=== PATIENT | female | born 1940 | race Caucasian/White ===

== ENCOUNTER 2018-07-26 23:15 | Inpatient (IN) | payer OTHER, BC ==
--- NOTE | 2018-07-27 00:09 | PDOC ---
History of Present Illness - General Chief Complaint: Chest Pain Stated Complaint: CHEST PAIN/FEVER Time Seen by Provider: 07/27/18 00:08 - History of Present Illness Initial Comments: 78 year old female with PMH of HTN (last echo 04/18 with EF 71%, mild right sided heart failure, and mild / AR), 40 pack year smoking history, and presenting with back pain wrapping aroudn to her left chest for the past 3 days since she slipped in her tub. The pain is non-exertional but worsens with upper body movement. Denies any nausea. vomiting, shortness of breath, diarrhea, or other symptoms. Of note, she has taken 7-8 ASA 324s today because of the pain and thought it would be prudent since she was aware of the benefit of aspirin in myocardial infarction. She was not, however, aware of the upper dosing limits and efficacy of ASA. Denies any nausea, vomiting, diarrhea, headache, or other symptoms. 07/27/18 00:16 Past History - Past Medical History Allergies/Adverse Reactions: Allergies Allergy/AdvReac Type Severity Reaction Status Date / Time No Known Allergies Allergy Verified 07/27/18 01:41 Home Medications: Ambulatory Orders Olmesartan Medoxomil [Benicar -] 40 mg PO DAILY 04/07/16 Aspirin [ASA -] 81 mg PO DAILY #30 tab.chew 04/09/16 COPD: No HTN: Yes - Surgical History Appendectomy: Yes Cholecystectomy: Yes - Suicide/Smoking/Psychosocial Hx Smoking History: Current every day smoker Have you smoked in the past 12 months: Yes Number of Cigarettes Smoked Daily: 20 Information on smoking cessation initiated: Yes 'Breaking Loose' booklet given: 04/08/16 Hx Alcohol Use: No Drug/Substance Use Hx: No Substance Use Type: None Hx Substance Use Treatment: No Review of Systems - Review of Systems Constitutional: No: Chills, Diaphoresis, Fever, Loss of Appetite HEENTM: No: Eye Pain, Blurred Vision, Tearing Respiratory: No: Cough, Orthopnea, Shortness of Breath Cardiac (ROS): Yes: Chest Pain. No: Irregular Heart Rate, Lightheadedness, Palpitations ABD/GI: No: Diarrhea, Nausea, Vomiting : No: Dysuria, Discharge, Frequency Musculoskeletal: No: See HPI, Back Pain, Joint Pain, Joint Swelling Integumentary: No: Flushing, Lesions, Lumps Neurological: No: Headache, Numbness, Paresthesia Psychiatric: No: Anxiety, Depression Hematologic/Lymphatic: No: Anemia, Blood Clots *Physical Exam - Vital Signs Last Vital Signs Temp Pulse Resp BP Pulse Ox 99.6 F 104 H 20 147/89 95 07/26/18 23:26 07/26/18 23:26 07/26/18 23:26 07/26/18 23:26 07/26/18 23:26 - Physical Exam General Appearance: Yes: Nourished, Appropriately Dressed. No: Apparent Distress HEENT: positive: EOMI, CHRISTOFER, Normal ENT Inspection, Normal Voice Neck: positive: Trachea midline, Normal Thyroid, Supple. negative: Tender, Rigid Respiratory/Chest: negative: Chest Tender, Lungs Clear, Normal Breath Sounds (r lower lobe crackles), Respiratory Distress, Accessory Muscle Use Cardiovascular: positive: Regular Rhythm, Regular Rate Gastrointestinal/Abdominal: positive: Normal Bowel Sounds, Flat, Soft. negative : Tender Lymphatic: negative: Adenopathy, Tenderness Musculoskeletal: positive: Normal Inspection. negative: Decreased Range of Motion Extremity: positive: Normal Capillary Refill, Normal Inspection, Normal Range of Motion. negative: Tender Integumentary: positive: Normal Color, Dry, Warm Neurologic: positive: Fully Oriented, Alert, Normal Mood/Affect, Normal Response ( ), Motor Strength 5/5 ED Treatment Course - LABORATORY CBC & Chemistry Diagram: 07/27/18 01:50 07/27/18 01:50 Medical Decision Making - Medical Decision Making 78 year old female with recent fall and left sided rib pain presenting with worsening cough and chest pain with fever. Suspicion is that her respiratory effort was compromised by her recent injury and she acquired a pneumonia because of it. CXR / CTA corroborating a right multifocal PNA. Patient also hyponatremic to 129. PSI/ PORT score 98. Patient treated with ceftriaxone, azithro, and normal saline. Will admit patient for further IV antibiotics because of potential for decline. 07/27/18 05:48 *DC/Admit/Observation/Transfer Diagnosis at time of Disposition: Hyponatremia PNA (pneumonia) Qualifiers: Pneumonia type: due to unspecified organism Laterality: right Lung location: lower lobe of lung Qualified Code(s): J18.1 - Lobar pneumonia, unspecified organism - Discharge Dispostion Condition at time of disposition: Stable Decision to Admit order: Yes - Referrals Referrals: Michelle Araujo MD [Primary Care Provider] - - Patient Instructions - Post Discharge Activity
--- NOTE | 2018-07-27 00:17 | PDOC ---
Attending Attestation - Resident Resident Name: Sylvester aSnto - ED Attending Attestation I have performed the following: I have examined & evaluated the patient, The case was reviewed & discussed with the resident, I agree w/resident's findings & plan - HPI HPI: 07/27/18 05:07 78-year-old female status post fall 5 days ago now with increasing cough, left back pain and fever. - Physicial Exam PE: 07/27/18 05:08 GENERAL: Awake, in no acute distress HEAD: No signs of trauma EYES: ENT:clear without exudates. Moist mucosa NECK: Normal ROM, LUNGS:. Normal work of breathing. HEART: Regular rate and rhythm, ABDOMEN: Soft, nondistended CHEST WALL: BACK: No midline tenderness. EXTREMITIES:. No erythema, or tenderness NEUROLOGICAL: Alert, SKIN: Warm, Dry - Medical Decision Making 07/27/18 05:12 78-year-old female with cough and fever status post fall 5 days ago CTA of the chest ordered due to abnormal findings in the right lower lung corrales on x-ray as well as pleuritic chest pain and recent trauma to rule out pulmonary embolism as well as postobstructive pneumonia/atelectasis/pulmonary contusion Antibiotics, cough suppression Disposition pending CT scan results
[2018-07-27 01:58] LABS: BASO % 0.4 % (0-2.0); EOS % 0.5 % (0-4.5); HEMOGLOBIN 12.7 GM/dL (10.7-15.3); LYMPH % 7.9 % (8-40); MCH 32.1 pg (25.7-33.7); MCHC 33.4 g/dl (32.0-36.0); MEAN PLT VOLUME 6.7 fl (7.5-11.1); MONO % 10.2 % (3.8-10.2); PLATELET COUNT 320 K/MM3 (134-434); RBC 3.96 M/mm3 (3.60-5.2)
[2018-07-27 02:29] LABS: ALK PHOS 118 U/L (45-117); ANION GAP 6 MMOL/L (8-16); BILIRUBIN,TOTAL 0.6 mg/dL (0.2-1); BLOOD UREA NITROGEN 7 mg/dL (7-18); CALCIUM 8.5 mg/dL (8.5-10.1); CHLORIDE 98 mmol/L (98-107); CO2 26 mmol/L (21-32); CREATININE 0.6 mg/dL (0.55-1.3); GLUCOSE,RANDOM 96 mg/dL (74-106); N-TERMINAL BNP 419.8 pg/ml (5-450); POTASSIUM 4.4 mmol/L (3.5-5.1); SGOT/AST 31 U/L (15-37); SGPT/ALT 23 U/L (13-61); SODIUM 129 mmol/L (136-145); TOT PROT 6.8 g/dl (6.4-8.2)
[2018-07-27] MEDS ORDERED: SODIUM CHLORIDE 0.9% 500 ML INFUS.BAG IV ONE (03:33)
[2018-07-27] MEDS ORDERED: ACETAMINOPHEN 1000 MG/100 ML VIAL (NON FORMULARY) IVPB ONE (04:14)
[2018-07-27] MEDS ORDERED: guaiFENesin 200 MG/10 ML 10 ML UNIT-DOSE CUPS PO ONE (04:14)
[2018-07-27] MEDS ORDERED: guaiFENesin/CODEINE 5 ML UNIT-DOSE CUPS PO ONE (04:22)
[2018-07-27] MEDS ORDERED: ACETAMINOPHEN INJECTION 100 ML IVPB ONE (04:22)
[2018-07-27] MEDS ORDERED: AZITHROMYCIN 250 MG TABLET PO ONE (05:17)
[2018-07-27] MEDS ORDERED: AZITHROMYCIN 250 MG TABLET ONE (05:58)
[2018-07-27] MEDS ORDERED: CEFTRIAXONE 1 GM/50 ML BAG ONE (05:58)
--- NOTE | 2018-07-27 06:12 | HP ---
Admitting History and Physical - Primary Care Physician PCP: Michelle Araujo - Admission Chief Complaint: Chest Pain, Back Pain, Cough History of Present Illness: This is a 78 y/o woman with a PMhx of HTN, Echo- EF 71%, mild R-hF, mild /AR. Who presents to the ED with chest pain, back pain, cough, fever x 1-2 days. Patient reports having a fever 102.0 at home. Patient describes the CP as "an Ache" She reports falling last Thursday out of the bathtub, hitting her head, denies LOC. Patient reports missing her step while getting out of the tub. She reports having headaches and dizziness intermittently. Patient denies SOB, palpitations, AP, N/V/D, dysuria. Patient denies recent sick contacts History Source: Patient Limitations to Obtaining History: No Limitations - Past Medical History Cardiovascular: Yes: Aortic Stenosis, CHF, HTN Pulmonary: Yes: COPD - Past Surgical History Past Surgical History: Yes: Cholecystectomy - Smoking History Smoking history: Current every day smoker Have you smoked in the past 12 months: Yes Aproximately how many cigarettes per day: 20 - Alcohol/Substance Use Hx Alcohol Use: No History of Substance Use: reports: None - Social History Usual Living Arrangement: Yes: With Spouse ADL: Independent History of Recent Travel: No Home Medications - Allergies Allergies/Adverse Reactions: Allergies Allergy/AdvReac Type Severity Reaction Status Date / Time No Known Allergies Allergy Verified 07/27/18 01:41 - Home Medications Home Medications: Ambulatory Orders Olmesartan Medoxomil [Benicar -] 40 mg PO DAILY 04/07/16 Aspirin [ASA -] 81 mg PO DAILY #30 tab.chew 04/09/16 Family Disease History - Family Disease History Family History: Unable to Obtain Review of Systems - Review of Systems Constitutional: reports: Fever Eyes: reports: No Symptoms HENT: reports: No Symptoms Neck: reports: No Symptoms Cardiovascular: reports: Chest Pain Respiratory: reports: Cough Gastrointestinal: reports: No Symptoms Genitourinary: reports: No Symptoms Breasts: reports: No Symptoms Reported Musculoskeletal: reports: Extremity Pain, Joint Pain Integumentary: reports: No Symptoms Neurological: reports: Dizziness, Headache Endocrine: reports: No Symptoms Hematology/Lymphatic: reports: No Symptoms Psychiatric: reports: No Symptoms Pain Intensity: 4 Physical Examination Vital Signs: Vital Signs Temperature 98.1 F 05/28/19 05:26 Pulse Rate 96 H 07/27/18 05:26 Respiratory Rate 17 07/27/18 05:26 Blood Pressure 135/74 07/27/18 05:26 O2 Sat by Pulse Oximetry (%) 99 07/27/18 05:26 Constitutional: Yes: No Distress, Calm, Thin Eyes: Yes: WNL, Conjunctiva Clear, PERRL HENT: Yes: WNL, Atraumatic, Normocephalic Neck: Yes: WNL, Supple, Trachea Midline Cardiovascular: Yes: Regular Rate and Rhythm, S1, S2 Respiratory: Yes: Diminished (RLL), On Nasal O2, Rhonchi Gastrointestinal: Yes: WNL, Normal Bowel Sounds, Soft Renal/: Yes: WNL Musculoskeletal: Yes: Other (left shoulder) Extremities: Yes: WNL Edema: No Peripheral Pulses WNL: Yes Neurological: Yes: WNL, Alert, Oriented, Cran Nerves II-XII Intact ...Motor Strength: WNL Psychiatric: Yes: WNL, Alert, Oriented Labs: CBC, BMP 07/27/18 01:50 07/27/18 01:50 Laboratory Results - last 24 hr 07/27/18 07/27/18 07/27/18 01:50 01:50 01:50 WBC 16.0 H RBC 3.96 Hgb 12.7 Hct 38.0 MCV 96.0 MCH 32.1 MCHC 33.4 RDW 14.0 Plt Count 320 MPV 6.7 L Absolute Neuts (auto) 13.0 H Neutrophils % 81.0 Lymphocytes % 7.9 L D Monocytes % 10.2 Eosinophils % 0.5 D Basophils % 0.4 Nucleated RBC % 0 Sodium 129 L Potassium 4.4 Chloride 98 Carbon Dioxide 26 Anion Gap 6 L BUN 7 Creatinine 0.6 Est GFR (CKD-EPI)AfAm 101.18 Est GFR (CKD-EPI)NonAf 87.30 Random Glucose 96 Lactic Acid Calcium 8.5 Magnesium Total Bilirubin 0.6 AST 31 ALT 23 Alkaline Phosphatase 118 H Creatine Kinase 370 H Creatine Kinase Index 0.2 CK-MB (CK-2) < 1.0 Troponin I < 0.02 B-Natriuretic Peptide 419.8 Total Protein 6.8 Albumin 3.0 L Salicylates 8.2 07/27/18 07/27/18 07/27/18 06:40 06:40 06:40 WBC RBC Hgb Hct MCV MCH MCHC RDW Plt Count MPV Absolute Neuts (auto) Neutrophils % Lymphocytes % Monocytes % Eosinophils % Basophils % Nucleated RBC % Sodium 132 L Potassium 3.8 Chloride 102 Carbon Dioxide 22 Anion Gap 8 BUN 5 L Creatinine 0.5 L Est GFR (CKD-EPI)AfAm 107.44 Est GFR (CKD-EPI)NonAf 92.70 Random Glucose 110 H Lactic Acid 0.8 Calcium 7.8 L Magnesium 2.1 Total Bilirubin AST ALT Alkaline Phosphatase Creatine Kinase Creatine Kinase Index CK-MB (CK-2) Troponin I < 0.02 B-Natriuretic Peptide Total Protein Albumin Salicylates Intake & Output 07/24/18 07/25/18 07/26/18 07/27/18 23:59 23:59 23:59 23:59 Weight 49.895 kg Current Medications Generic Name Dose Route Start Last Admin Trade Name Freq PRN Reason Stop Dose Admin Acetaminophen 650 mg 07/27/18 10:00 Tylenol - PO Q6H PRN FEVER Aspirin 81 mg 07/27/18 10:00 Asa - PO DAILY [facility] Azithromycin 500 mg in 250 mls @ 250 mls/hr 07/28/18 10:00 Zithromax 500mg Ivpb (Pre-Docked) IVPB DAILY [facility] Ceftriaxone Sodium 1 gm/ 50 mls @ 100 mls/hr 07/28/18 10:00 Dextrose IVPB DAILY [facility] Protocol Valsartan 320 mg 07/27/18 10:00 Diovan - PO DAILY [facility] Imaging - Results Chest X-ray: Image Reviewed Cat Scan: Pending (Head), Image Reviewed (chest- multifocal RLL pneumonia) EKG: Image Reviewed Problem List - Problems (1) Chest pain Assessment/Plan: r/o ACS HEART Score 4 Chest Xray- RLL Pneumonia EKG- NSR with TWI Cardiac monitoring Serial Enzymes Appreciate Cardiology consult Continue Asa Code(s): R07.9 - CHEST PAIN, UNSPECIFIED (2) PNA (pneumonia) Assessment/Plan: Will treat for CAP CURB65 1 qSOFA 0 Chest Xray- RLL CTA- Multifocal Pneumonia RLL WBC 16, neutrophils 81.1 T Max 100.2 Ceftriaxone, Azithromycin given in ED, will continue Blood Cultures-pending Urine Culture-pending Lactic Acid ordered Appreciate ID consult Monitor CBC, BMP O2 Tylenol Code(s): J18.9 - PNEUMONIA, UNSPECIFIED ORGANISM Qualifiers: Pneumonia type: due to unspecified organism Laterality: right Lung location: lower lobe of lung Qualified Code(s): J18.1 - Lobar pneumonia, unspecified organism (3) Sepsis Assessment/Plan: Sepsis Criteria met secondary to Pneumonia T Max 102 WBC 16 Neutrophils 81 Chest Xray- RLL Blood Cultures-pending Urine Cultures-pending Lactic Acid- pending Continue ABX Appreciate ID consult Maintain MAP > 65 Monitor vitals Repeat CBC, BMP Code(s): A41.9 - SEPSIS, UNSPECIFIED ORGANISM (4) Hyponatremia Assessment/Plan: Likely secondary to Dehydration vs SIADH NS bolus given in ED Na Deficit 295 Goal correction 6-8meq/24hr Monitor BMP closely Serum Osmo, Urine Osmo, Na Spot-pending Consider Nephrology consult if condition worsens Monitor vitals Seizure Precautions Code(s): E87.1 - HYPO-OSMOLALITY AND HYPONATREMIA (5) Fall at home Assessment/Plan: x 1 week out of bathtub, +head trauma, denies LOC Will order Head CT r/o concussion Neuro checks Monitor vitals Fall Precautions Code(s): W19.XXXA - UNSPECIFIED FALL, INITIAL ENCOUNTER; Y92.009 - UNSP PLACE IN UNSP NON-INSTITUT (PRIVATE) RESIDENCE PLACE (6) HTN (hypertension) Assessment/Plan: stable Monitor BP Continue home med Monitor renal function Code(s): I10 - ESSENTIAL (PRIMARY) HYPERTENSION Assessment/Plan This is a 78 y/o woman with a PMHx of HTN, Echo EF 71%, Mild Right HF, Mild / AR. Placed in Observation for Chest Pain r/o ACS, Sepsis secondary to Community Acquired Pneumonia, Hyponatremia for further evaluation of their emergent condition. Plan: See Problem List FEN Replete lytes prn Low Na Diet DVT ppx OOB SCDs Heparin SQ Dispo: Observation Visit type - Emergency Visit Emergency Visit: Yes ED Registration Date: 07/27/18 Care time: The patient presented to the Emergency Department on the above date and was hospitalized for further evaluation of their emergent condition. - New Patient This patient is new to me today: Yes Date on this admission: 07/27/18 - Critical Care Critical Care patient: No
[2018-07-27 07:17] LABS: CALCIUM 7.8 mg/dL (8.5-10.1); CREATININE 0.5 mg/dL (0.55-1.3); MAGNESIUM 2.1 mg/dL (1.8-2.4); POTASSIUM 3.8 mmol/L (3.5-5.1)
--- NOTE | 2018-07-27 10:40 | PN ---
Progress Note, Physician Chief Complaint: Pneumonia Chest pain - Current Medication List Current Medications: Active Medications Acetaminophen (Tylenol -) 650 mg PO Q6H PRN PRN Reason: FEVER Aspirin (Asa -) 81 mg PO DAILY [facility] Azithromycin (Zithromax 500mg Ivpb (Pre-Docked)) 500 mg in 250 mls @ 250 mls/ hr IVPB DAILY [facility] Ceftriaxone Sodium 1 gm/ (Dextrose) 50 mls @ 100 mls/hr IVPB DAILY [facility]; Protocol Nicotine (Nicoderm Patch -) 14 mg TD DAILY AV Valsartan (Diovan -) 320 mg PO DAILY AV - Objective Vital Signs: Vital Signs Temperature 98.7 F 07/27/18 07:33 Pulse Rate 97 H 07/27/18 09:30 Respiratory Rate 20 07/27/18 09:30 Blood Pressure 130/80 07/27/18 09:30 O2 Sat by Pulse Oximetry (%) 97 07/27/18 09:30 Constitutional: Yes: Well Nourished, No Distress, Calm Cardiovascular: Yes: Regular Rate and Rhythm Respiratory: Yes: Regular Gastrointestinal: Yes: Normal Bowel Sounds, Soft Musculoskeletal: Yes: Muscle Weakness Extremities: Yes: WNL Edema: No Neurological: Yes: Alert, Oriented Psychiatric: Yes: Alert, Oriented Labs: CBC, BMP 07/27/18 01:50 07/27/18 06:40 Problem List - Problems (1) Chest pain Assessment/Plan: -Cardiology consult -Trops x 3 negative -EKG no changes -CT chest reviewed, cannot exclude PE -V/Q scan ordered -Pulmonary consult Code(s): R07.9 - CHEST PAIN, UNSPECIFIED (2) PNA (pneumonia) Assessment/Plan: -CT chest reviewed, cannot exclude PE -RLL consolidation -IV abx -Pulmonary consult -Bronchodilators -Nasal O2 PRN -Febrile upon admission. afebrile now -+leukocytosis, monitor trend Code(s): J18.9 - PNEUMONIA, UNSPECIFIED ORGANISM Qualifiers: Pneumonia type: due to unspecified organism Laterality: right Lung location: lower lobe of lung Qualified Code(s): J18.1 - Lobar pneumonia, unspecified organism (3) Pulmonary embolism Assessment/Plan: -Questionable PE on CTA -maintaining Spo2 >90, no SOB -STAT V/Q scan ordered -pulmonary consult -Stat dose of Lovenox 50 mg Code(s): I26.99 - OTHER PULMONARY EMBOLISM WITHOUT ACUTE COR PULMONALE (4) Hyponatremia Assessment/Plan: -seems chronic -Nephrology consult -monitor trend Code(s): E87.1 - HYPO-OSMOLALITY AND HYPONATREMIA Assessment/Plan see problem list Physical therapy
[2018-07-27] MEDS ORDERED: APIXABAN 5 MG TABLET PO SCH (10:45)
[2018-07-27 10:51] VITALS: BMI 20.7
[2018-07-27] MEDS ORDERED: BENZOCAINE/MENTH/CETYLPYRD CL 1 EACH LOZENGE MM PRN (10:52)
--- NOTE | 2018-07-27 11:31 | EKG ---
Test Reason : Blood Pressure : / mmHG Vent. Rate : 099 BPM Atrial Rate : 099 BPM P-R Int : 136 ms QRS Dur : 082 ms QT Int : 336 ms P-R-T Axes : 062 076 051 degrees QTc Int : 431 ms SINUS RHYTHM WITH MARKED SINUS ARRHYTHMIA SEPTAL INFARCT , AGE UNDETERMINED ABNORMAL ECG WHEN COMPARED WITH ECG OF 08-APR-2016 14:05, PREMATURE ATRIAL COMPLEXES ARE NO LONGER PRESENT SEPTAL INFARCT IS NOW PRESENT Confirmed by Ryan Gill MD ([id number]) on 07/27/2018 11:31:02 AM Referred By: Confirmed By:Ryan Gill MD
[2018-07-27] MEDS: VALSARTAN 160 MG TABLET (UD) PO SCH ×2 (12:03→13:54)
[2018-07-27] MEDS: ASPIRIN 81 MG CHEWABLE TABLETS PO SCH (12:03)
[2018-07-27] MEDS: guaiFENesin/D-METHORPHAN HB 10 ML UNIT-DOSE CUPS PO PRN ×3 (12:03→20:16)
[2018-07-27] MEDS: NICOTINE 14 MG/24 HOURS TOPICAL PATCH TD SCH (12:08)
[2018-07-27] MEDS: ENOXAPARIN NA (PORCINE) 60 MG/0.6 ML DISP.SYRIN SQ SCH ×2 (12:09→22:07)
--- NOTE | 2018-07-27 12:09 | CONSULT ---
Consult - text type - Consultation Consultation Note: Renal consult for hyponatremia This is a 78 year old woman with hx of Hypertension, right sided heart failure who presented with cough/fever and chest pain and found to have RLL PNA and possible PE with Na of 132. Pt is awake and alert, continues to have cough. Pt was told in the past that her Na was low but no treatment was warranted. Denies any confusion, lethargy, weakness, N/V. Drinks about 10 glasses of water daily. No diuretic use. No leg swelling. Making urine w/o difficulty. PMHx: as above Allergies: NKDA Family Hx: NC Social Hx: No T/A/D ROS: as per HPI, all other pertinent ros negative Home Medications Medication Instructions Recorded Olmesartan Medoxomil [Benicar -] 40 mg PO DAILY 04/07/16 Aspirin [ASA -] 81 mg PO DAILY #30 tab.chew 04/09/16 Vital Signs Temperature 99.1 F 07/27/18 10:45 Pulse Rate 92 H 07/27/18 10:45 Respiratory Rate 18 07/27/18 10:45 Blood Pressure 134/76 07/27/18 10:45 O2 Sat by Pulse Oximetry (%) 97 07/27/18 09:30 Intake & Output 07/24/18 07/25/18 07/26/18 07/27/18 23:59 23:59 23:59 23:59 Weight 49.895 kg 49.85 kg NAD awake and alert on NC O2 neck supple, no JVD RRR, no M/R mild rales lung base soft NT/ND no Le edema, clubbing or cyanosis no focal neurologic deficits CBC, BMP 07/27/18 01:50 07/27/18 06:40 Current Medications Acetaminophen (Tylenol -) 650 mg PO Q6H PRN PRN Reason: FEVER Albuterol/Ipratropium (Duoneb -) 1 amp NEB Q6H PRN PRN Reason: SHORTNESS OF BREATH Aspirin (Asa -) 81 mg PO DAILY AV Benzocaine/Menthol (Cepacol Lozenge -) 1 each MM PRN PRN PRN Reason: SORE THROAT Enoxaparin Sodium (Lovenox -) 50 mg SQ Q12H AV Guaifenesin (Robitussin Dm -) 10 ml PO Q4H PRN PRN Reason: COUGH Azithromycin (Zithromax 500mg Ivpb (Pre-Docked)) 500 mg in 250 mls @ 250 mls/ hr IVPB DAILY [facility] Ceftriaxone Sodium 1 gm/ (Dextrose) 50 mls @ 100 mls/hr IVPB DAILY [facility]; Protocol Nicotine (Nicoderm Patch -) 14 mg TD DAILY [facility] Valsartan (Diovan -) 320 mg PO DAILY AV 78 year old woman with hx of Hypertension, right sided heart failure who presented with cough/fever and chest pain and found to have RLL PNA and possible PE with Na of 132. #Chest pain #PNA #Possible PE #Hyponatremiea (evolemic) #hypertension Serum Na likely low due to ADH release in setting of lung pathology Check urine studies, TSH, AM Cortisol, Uric aicd Would maintain on 1L fluid restriction for now (discussed with the patient) continue antibiotics as per primary on Lovenox for suspected PE Pulmonary consult Thank you Will follow Erick Montano DO
--- NOTE | 2018-07-27 12:48 | PN ---
Progress Note (short form) - Note Progress Note: ID CONSULT DICTATED COMMUNITY ACQ VS. ATYPICAL RLL PNEUMONIA R/O SEPSIS SECONDARY TO PNEUMONIA AWAIT C/S EMPIRIC CEFTRIAXONE/ ZITHROMAX
--- NOTE | 2018-07-27 13:02 | CON.PULM ---
Consult Consult Specialty:: PULM/CCM Referred by:: MOJGAN Reason for Consultation:: SOB - History of Present Illness Chief Complaint: SOB History of Present Illness: 78 F, 1 PPD smoker and HTN. Recent slip and fall in her bathtub on her back. Having musculoskeletal pain mostly in the back. Admitted via the ER due to chest pain, back pain, cough, fever for about 1-2 days. She reports having a fever of 102.0 at home. No hemoptysis. No travel history or sick contacts. No personal or family history of VTE. No recent prolonged periods of immobilzation. CTA: filling defect in the RLL. Infiltrates / consolidation in the RLL. - History Source History Provided By: Patient Limitations to Obtaining History: No Limitations - Past Medical History Cardio/Vascular: Yes: Aortic Stenosis, CHF, HTN Pulmonary: Yes: Bronchitis, COPD, Pneumonia. No: O2 Dependent, Previously Intubated, Pulmonary Embolus, Pulmonary Fibrosis, Sleep Apnea ...: No - Past Surgical History Past Surgical History: Yes: Cholecystectomy - Alcohol/Substance Use Hx Alcohol Use: Yes (socially) History of Substance Use: reports: None - Smoking History Smoking history: Current every day smoker Have you smoked in the past 12 months: Yes Aproximately how many cigarettes per day: 20 - Social History ADL: Independent History of Recent Travel: No Home Medications - Allergies Allergies/Adverse Reactions: Allergies Allergy/AdvReac Type Severity Reaction Status Date / Time No Known Allergies Allergy Verified 07/27/18 01:41 - Home Medications Home Medications: Ambulatory Orders Olmesartan Medoxomil [Benicar -] 40 mg PO DAILY 04/07/16 Aspirin [ASA -] 81 mg PO DAILY #30 tab.chew 04/09/16 Review of Systems - Review of Systems Constitutional: reports: Chills, Fever. denies: Unintentional Wgt. Loss Eyes: reports: No Symptoms HENT: reports: No Symptoms Neck: reports: No Symptoms Cardiovascular: reports: Chest Pain, Shortness of Breath. denies: Edema, Palpitations Respiratory: reports: Cough, SOB, SOB on Exertion. denies: Hemoptysis, Snoring , Wheezing Gastrointestinal: reports: No Symptoms Genitourinary: reports: No Symptoms Breasts: reports: No Symptoms Reported Musculoskeletal: reports: Back Pain, Muscle Pain Integumentary: reports: No Symptoms Neurological: reports: No Symptoms Endocrine: reports: No Symptoms Hematology/Lymphatic: reports: No Symptoms Psychiatric: reports: No Symptoms Physical Exam Vital Sings: Vital Signs Temperature 99.1 F 07/27/18 10:45 Pulse Rate 92 H 07/27/18 10:45 Respiratory Rate 18 07/27/18 10:45 Blood Pressure 134/76 07/27/18 10:45 O2 Sat by Pulse Oximetry (%) 97 07/27/18 09:30 Constitutional: Yes: No Distress, Thin Eyes: Yes: Conjunctiva Clear, EOM Intact HENT: Yes: Atraumatic, Normocephalic Neck: Yes: Supple, Trachea Midline Cardiovascular: Yes: Regular Rate and Rhythm Respiratory: Yes: Cough, Diminished, Rhonchi, SOB, SOB on Exertion, Tachypnea. No: Accessory Muscle Use, Rales, Stridor, Wheezes ...Inspection: Yes: WNL ...Clubbing: No Gastrointestinal: Yes: Normal Bowel Sounds, Soft Renal/: Yes: WNL Musculoskeletal: Yes: WNL Extremities: Yes: WNL Edema: No Peripheral Pulses WNL: Yes Integumentary: Yes: WNL Neurological: Yes: WNL, Alert, Oriented ...Motor Strength: WNL Psychiatric: Yes: WNL, Alert, Oriented Labs: CBC, BMP 07/27/18 01:50 07/27/18 06:40 Imaging - Results Chest X-ray: Report Reviewed, Image Reviewed Cat Scan: Report Reviewed, Image Reviewed Problem List - Problems (1) COPD (chronic obstructive pulmonary disease) Code(s): J44.9 - CHRONIC OBSTRUCTIVE PULMONARY DISEASE, UNSPECIFIED (2) Smoker Code(s): F17.200 - NICOTINE DEPENDENCE, UNSPECIFIED, UNCOMPLICATED (3) Chest pain Code(s): R07.9 - CHEST PAIN, UNSPECIFIED (4) Fall at home Code(s): W19.XXXA - UNSPECIFIED FALL, INITIAL ENCOUNTER; Y92.009 - UNSP PLACE IN UNSP NON-INSTITUT (PRIVATE) RESIDENCE PLACE (5) HTN (hypertension) Code(s): I10 - ESSENTIAL (PRIMARY) HYPERTENSION (6) Hyponatremia Code(s): E87.1 - HYPO-OSMOLALITY AND HYPONATREMIA (7) PNA (pneumonia) Code(s): J18.9 - PNEUMONIA, UNSPECIFIED ORGANISM Qualifiers: Pneumonia type: due to unspecified organism Laterality: right Lung location: lower lobe of lung Qualified Code(s): J18.1 - Lobar pneumonia, unspecified organism (8) Pulmonary embolism Code(s): I26.99 - OTHER PULMONARY EMBOLISM WITHOUT ACUTE COR PULMONALE (9) Fall Code(s): W19.XXXA - UNSPECIFIED FALL, INITIAL ENCOUNTER Qualifiers: Encounter type: initial encounter Qualified Code(s): W19.XXXA - Unspecified fall, initial encounter Assessment/Plan ABX per ID No smoking counseled BD TX PRN Monitor off systemic steroids Juan AC with Lovenox for now and then DOAC. CT chest does appear to demonstrate a RLL filling defect. Will review further with radiology. Check LE doppler Check sputum Will need outpatient PFTs Will follow. Thank you. Dr Rosas
[2018-07-27 13:06] LABS: OSMOLALITY,SERUM 273 mosm/kg (278-305)
[2018-07-27 13:12] LABS: URIC ACID 2.3 mg/dL (2.6-7.2)
--- NOTE | 2018-07-27 14:11 | CON.CARD ---
Consult Consult Specialty:: Cardiology Referred by:: Michelle Araujo MD Reason for Consultation:: Cardiac evaluation - History of Present Illness Chief Complaint: Cough and fever History of Present Illness: Patient is a 78 year old female well known to our service with underlying history of HTN/HCVD, borderline hypercholesterolemia who presents with chest pain, back pain, cough (dry) and fever or 102. SHe complains of fall last week in the bathtub hitting her head but no LOC. She denies palpitations at this time. She denies paroxysmal nocturnal dyspnea or orthopnea. She denies nausea, vomiting, diarrhea or abdominal pain. She denies headache or lightheadedness. No sick contacts. - History Source History Provided By: Patient, Medical Record Limitations to Obtaining History: No Limitations - Past Medical History Cardio/Vascular: Yes: Aortic Stenosis, CHF, HTN Pulmonary: Yes: Bronchitis, COPD, Pneumonia - Past Surgical History Past Surgical History: Yes: Cholecystectomy - Alcohol/Substance Use Hx Alcohol Use: Yes (socially) History of Substance Use: reports: None - Smoking History Smoking history: Current every day smoker Have you smoked in the past 12 months: Yes Aproximately how many cigarettes per day: 20 - Social History ADL: Independent History of Recent Travel: No Home Medications - Allergies Allergies/Adverse Reactions: Allergies Allergy/AdvReac Type Severity Reaction Status Date / Time No Known Allergies Allergy Verified 07/27/18 01:41 - Home Medications Home Medications: Ambulatory Orders Olmesartan Medoxomil [Benicar -] 40 mg PO DAILY 04/07/16 Aspirin [ASA -] 81 mg PO DAILY #30 tab.chew 04/09/16 Review of Systems - Review of Systems Constitutional: reports: Fever. denies: Chills Cardiovascular: reports: Chest Pain, Shortness of Breath. denies: Palpitations Respiratory: reports: Cough, SOB. denies: Hemoptysis, Orthopnea, PND Gastrointestinal: denies: Abdominal Pain, Constipation, Diarrhea, Melena, Nausea , Rectal Bleeding, Vomiting Genitourinary: denies: Dysuria, Hematuria Musculoskeletal: reports: Back Pain. denies: Joint Pain Neurological: denies: Dizziness, Headache, Seizure, Syncope Vital Signs: Vital Signs Temperature 99.1 F 07/27/18 10:45 Pulse Rate 92 H 07/27/18 10:45 Respiratory Rate 18 07/27/18 10:45 Blood Pressure 134/76 07/27/18 10:45 O2 Sat by Pulse Oximetry (%) 97 07/27/18 09:30 Eyes: Yes: PERRL HENT: Yes: Atraumatic Neck: Yes: Supple Respiratory: Yes: Diminished Gastrointestinal: Yes: Normal Bowel Sounds, Soft. No: Tenderness Cardiovascular: Yes: Regular Rate and Rhythm JVD: No PMI: Non-Displaced Heart Sounds: Yes: S1, S2. No: Gallop Edema: No - Other Data Labs, Other Data: CBC, BMP 07/27/18 01:50 07/27/18 06:40 Troponin, BNP 07/27/18 07/27/18 07/27/18 01:50 06:40 07:40 Troponin I < 0.02 < 0.02 < 0.02 B-Natriuretic Peptide 419.8 Sinus rhythm with sinus arrhythmia Imaging - Results Chest X-ray: Report Reviewed (Atelectasis and new infiltrate right base) Cat Scan: Report Reviewed (Chest CT acute pneumonia) EKG: Report Reviewed Problem List - Problems (1) Aortic valve regurgitation, nonrheumatic Code(s): I35.1 - NONRHEUMATIC AORTIC (VALVE) INSUFFICIENCY (2) COPD (chronic obstructive pulmonary disease) Code(s): J44.9 - CHRONIC OBSTRUCTIVE PULMONARY DISEASE, UNSPECIFIED Qualifiers: COPD type: unspecified COPD Qualified Code(s): J44.9 - Chronic obstructive pulmonary disease, unspecified (3) HTN (hypertension) Code(s): I10 - ESSENTIAL (PRIMARY) HYPERTENSION Qualifiers: Hypertension type: essential hypertension Qualified Code(s): I10 - Essential (primary) hypertension (4) Mitral regurgitation Code(s): I34.0 - NONRHEUMATIC MITRAL (VALVE) INSUFFICIENCY Qualifiers: Cardiac valve disease etiology: nonrheumatic Qualified Code(s): I34.0 - Nonrheumatic mitral (valve) insufficiency (5) PNA (pneumonia) Code(s): J18.9 - PNEUMONIA, UNSPECIFIED ORGANISM Qualifiers: Pneumonia type: due to unspecified organism Laterality: right Lung location: lower lobe of lung Qualified Code(s): J18.1 - Lobar pneumonia, unspecified organism Assessment/Plan 1. Imaging c/w pneumonia 2. HTN 3. Hypercholesterolemia PLAN: 1. Antibiotic coverage 2. Bronchodilator as needed 3. Continue Olmesartan 4. ASA Further plans are to follow Sang H. Reina MD
--- NOTE | 2018-07-27 15:09 | CONS ---
DATE OF CONSULTATION: 07/27/2018 The patient is a 78-year-old female with a longstanding tobacco use history, evaluated for pneumonia. She presented to the emergency room with complaints of left-sided chest pain. Approximately 1 week ago she had fallen at home in the bathroom. She sustained trauma to various parts of her body. She reports developing worsening left-sided chest pain over the past 3 days. It was associated with fever to 102 at home and dry cough. She presented to the emergency room, where she was noted to have an elevated temperature and white blood cell count. CAT scan of the chest was performed and showed a right lower lobe infiltrate and possible pulmonary embolism. The patient reports cough which is dry. She denies any purulent sputum production or hemoptysis. The pain she is experiencing is on the left side, not the right side where the infiltrate was noted. She denies any ill contacts. She lives at home with her , who is well. He has no respiratory tract symptoms. She has a heavy tobacco use history and continues to smoke. No recent hospitalizations. No recent travel. She states that she is up-to-date with respect to vaccinations. Past medical history positive for hypertension and valvular heart disease. No known allergies. MEDICATIONS: Benicar, aspirin. SOCIAL HISTORY: As per HPI. SYSTEMS REVIEW: Neurologic: No loss of consciousness, seizure activity, focal weakness. Cardiac: As per HPI. Respiratory: As per HPI. Gastrointestinal: Negative vomiting or diarrhea. Genitourinary: Negative for urinary tract infection. LABORATORY DATA: White count 16.0, neutrophils 81, lymphocytes 8, monocytes 10, hematocrit 38.0, platelet count 320. Creatinine 0.5, total bilirubin 0.6, alkaline phosphatase 118. AST 31. Blood cultures are pending. Serum sodium 129. PHYSICAL EXAMINATION: General: She is awake and alert. She is ambulatory. She is not acutely short of breath on nasal cannula. The patient is frail appearing. Vital Signs: Temperature 99.1, T-max 100.2. Blood pressure 134/76. Pulse 92, regular. Respirations 18 per minute. Eyes: Sclerae anicteric. Heart Sounds: S1, S2. Lungs: Few rhonchi bilaterally. No wheezing or rales. Abdomen: Soft. No tenderness elicited. Extremities: Negative for edema. IMPRESSION: 1. Community-acquired versus atypical right lower lobe pneumonia. 2. Rule out sepsis secondary to pneumonia. 3. Fever, leukocytosis. 4. Hyponatremia. 5. Rule out pulmonary embolism. 6. Status post fall. Await cultures. Obtain urine Legionella and pneumococcal antigens, sputum culture. Continue empiric antibiotic coverage with ceftriaxone and Zithromax. Pulmonary evaluation. Hyponatremia is concerning. This may be an extrapulmonary manifestation of an atypical pulmonary infection such as Legionella, or possibly paraneoplastic. Will need close followup. Thank you for the kind referral. IZA VERA M.D. [id number]
[2018-07-27] MEDS: ALBUTEROL SO4 2.5/IPRATROPIUM 0.5 INH SOL 3 ML VIAL.NEB. NEB PRN (15:35)
[2018-07-27 16:03] LABS: HYALINE CASTS 3 /lpf (0-8); PH,URINE 6.5 (5.0-8.0); URINE APPEARANCE CLOUDY; URINE BACTERIA 764.2 /hpf (NEGATIVE); URINE BILIRUBIN NEGATIVE (NEGATIVE); URINE COLOR YELLOW; URINE GLUCOSE (UA) NEGATIVE (NEGATIVE); URINE KETONE TRACE (NEGATIVE); URINE LEUK ESTERASE 1+ (NEGATIVE); URINE NITRITE POSITIVE (NEGATIVE); URINE PROTEIN NEGATIVE (NEGATIVE); URINE WBC 7 /hpf (0-5)
[2018-07-27] MEDS: ACETAMINOPHEN 325 MG TABLET (FP) PO PRN ×2 (16:04→22:08)
[2018-07-27 17:52] LABS: URINE RBC 37.2 /hpf (0-4)
[2018-07-27] MEDS ORDERED: PT OWN MED DRAWER 7, Y5N ONE ×2 (20:34→22:25)
[2018-07-28] MEDS: guaiFENesin/D-METHORPHAN HB 10 ML UNIT-DOSE CUPS PO PRN ×5 (00:07→22:03)
[2018-07-28] MEDS: ACETAMINOPHEN 325 MG TABLET (FP) PO PRN ×3 (06:41→20:23)
[2018-07-28 07:46] LABS: BASO % 0.3 % (0-2.0); EOS % 0.9 % (0-4.5); HEMATOCRIT 34.4 % (32.4-45.2); HEMOGLOBIN 11.7 GM/dL (10.7-15.3); MCH 32.1 pg (25.7-33.7); MCHC 33.9 g/dl (32.0-36.0); MEAN CELL VOLUME 94.6 fl (80-96); MEAN PLT VOLUME 6.9 fl (7.5-11.1); MONO % 8.5 % (3.8-10.2); NEUT % 84.3 % (42.8-82.8); PLATELET COUNT 387 K/MM3 (134-434); RBC 3.63 M/mm3 (3.60-5.2); RDW 13.7 % (11.6-15.6); WHITE BLOOD COUNT 13.3 K/mm3 (4.0-10.0)
[2018-07-28 08:46] LABS: ALBUMIN 2.7 g/dl (3.4-5.0); BILIRUBIN,TOTAL 0.6 mg/dL (0.2-1); CALCIUM 8.1 mg/dL (8.5-10.1); CREATININE 0.5 mg/dL (0.55-1.3); POTASSIUM 3.5 mmol/L (3.5-5.1); TOT PROT 6.1 g/dl (6.4-8.2)
[2018-07-28] MEDS ORDERED: DEXTROSE 5%-WATER 100 ML IVPB ONE (09:52)
[2018-07-28] MEDS: CEFTRIAXONE 2 GM in DEXTROSE 5%-WATER 100 ML IVPB SCH (09:59)
[2018-07-28] MEDS: ENOXAPARIN NA (PORCINE) 60 MG/0.6 ML DISP.SYRIN SQ SCH (10:00)
[2018-07-28] MEDS: AZITHROMYCIN IVPB 500 MG/250 ML BAG IVPB SCH (10:00)
[2018-07-28] MEDS ORDERED: CEFTRIAXONE 1 GM in DEXTROSE 5%-WATER - 50 ML IVPB SCH (10:00)
[2018-07-28] MEDS: OLMESARTAN 20 MG PO SCH (10:00)
[2018-07-28] MEDS: ASPIRIN 81 MG CHEWABLE TABLETS PO SCH (10:01)
[2018-07-28] MEDS: NICOTINE 14 MG/24 HOURS TOPICAL PATCH TD SCH (10:01)
--- NOTE | 2018-07-28 11:15 | PN ---
Progress Note, Physician Chief Complaint: Pneumonia Chest pain History of Present Illness: NAD denies SOB on exertion Seen by Cardiology, pulmonary and ID CT confirms PE - Current Medication List Current Medications: Active Medications Acetaminophen (Tylenol -) 650 mg PO Q6H PRN PRN Reason: FEVER Last Admin: 07/28/18 06:41 Dose: 650 mg Albuterol/Ipratropium (Duoneb -) 1 amp NEB Q6H PRN PRN Reason: SHORTNESS OF BREATH Last Admin: 07/27/18 15:35 Dose: 1 amp Apixaban (Eliquis -) 5 mg PO BID [facility] Aspirin (Asa -) 81 mg PO DAILY [facility] Last Admin: 07/28/18 10:01 Dose: 81 mg Benzocaine/Menthol (Cepacol Lozenge -) 1 each MM PRN PRN PRN Reason: SORE THROAT Guaifenesin (Robitussin Dm -) 10 ml PO Q4H PRN PRN Reason: COUGH Last Admin: 07/28/18 11:11 Dose: 10 ml Azithromycin (Zithromax 500mg Ivpb (Pre-Docked)) 500 mg in 250 mls @ 250 mls/ hr IVPB DAILY [facility] Last Admin: 07/28/18 10:00 Dose: 250 mls/hr Ceftriaxone Sodium 2 gm/ (Dextrose) 100 mls @ 100 mls/hr IVPB DAILY [facility]; Protocol Last Admin: 07/28/18 09:59 Dose: 100 mls/hr Nicotine (Nicoderm Patch -) 14 mg TD DAILY [facility] Last Admin: 07/28/18 10:01 Dose: 14 mg Patient's Own Medication (Non- Formulary) Olmesartan 20mg 2 each PO DAILY [facility] Last Admin: 07/28/18 10:00 Dose: 2 each - Objective Vital Signs: Vital Signs Temperature 99.8 F H 07/28/18 06:00 Pulse Rate 91 H 07/28/18 06:00 Respiratory Rate 20 07/28/18 06:00 Blood Pressure 151/51 L 07/28/18 06:00 O2 Sat by Pulse Oximetry (%) 97 07/27/18 21:00 Constitutional: Yes: Well Nourished, No Distress, Calm Cardiovascular: Yes: Regular Rate and Rhythm Respiratory: Yes: Regular Gastrointestinal: Yes: Normal Bowel Sounds, Soft Musculoskeletal: Yes: WNL Extremities: Yes: WNL Edema: No Peripheral Pulses WNL: Yes Neurological: Yes: Alert, Oriented Psychiatric: Yes: Alert, Oriented Labs: CBC, BMP 07/28/18 07:15 07/28/18 07:15 Problem List - Problems (1) Chest pain Assessment/Plan: -Cardiology consult -Trops x 3 negative -EKG no changes -CT chest reviewed again by radiology- PE confirmed -echo pending -Pulmonary consult Code(s): R07.9 - CHEST PAIN, UNSPECIFIED (2) PNA (pneumonia) Assessment/Plan: -CT chest reviewed -RLL consolidation -IV abx -Pulmonary consult -Bronchodilators -Nasal O2 PRN -Febrile upon admission. afebrile now -+leukocytosis, monitor trend Code(s): J18.9 - PNEUMONIA, UNSPECIFIED ORGANISM Qualifiers: Pneumonia type: due to unspecified organism Laterality: right Lung location: lower lobe of lung Qualified Code(s): J18.1 - Lobar pneumonia, unspecified organism (3) Pulmonary embolism Assessment/Plan: -Questionable PE on CTA -maintaining Spo2 >90, no SOB -pulmonary consult -d/c lovenox -start Eliquis 5 mg po bid -Echo pending Code(s): I26.99 - OTHER PULMONARY EMBOLISM WITHOUT ACUTE COR PULMONALE (4) Hyponatremia Assessment/Plan: -seems chronic -Nephrology consult -monitor trend Code(s): E87.1 - HYPO-OSMOLALITY AND HYPONATREMIA Assessment/Plan see problem list Physical therapy
--- NOTE | 2018-07-28 14:10 | PN ---
Progress Note (short form) - Note Progress Note: PULMONARY Denies shortness of breath. +cough. Fevers down. Vital Signs Period Temp Pulse Resp BP Sys/Bennett Pulse Ox Last 24 Hr 97.9 F-102.0 F 87-111 20-22 119-156/51-87 95-97 Gen: NAD at rest Heart: RRR Lung: decreased breath sounds at the bases Abd: soft, nontender Ext: no edema CBC, BMP 07/28/18 07:15 07/28/18 07:15 Active Medications Acetaminophen (Tylenol -) 650 mg PO Q6H PRN PRN Reason: FEVER Last Admin: 07/28/18 13:37 Dose: 650 mg Albuterol/Ipratropium (Duoneb -) 1 amp NEB Q6H PRN PRN Reason: SHORTNESS OF BREATH Last Admin: 07/27/18 15:35 Dose: 1 amp Apixaban (Eliquis -) 5 mg PO BID [facility] Aspirin (Asa -) 81 mg PO DAILY [facility] Last Admin: 07/28/18 10:01 Dose: 81 mg Benzocaine/Menthol (Cepacol Lozenge -) 1 each MM PRN PRN PRN Reason: SORE THROAT Guaifenesin (Robitussin Dm -) 10 ml PO Q4H PRN PRN Reason: COUGH Last Admin: 07/28/18 11:11 Dose: 10 ml Azithromycin (Zithromax 500mg Ivpb (Pre-Docked)) 500 mg in 250 mls @ 250 mls/ hr IVPB DAILY [facility] Last Admin: 07/28/18 10:00 Dose: 250 mls/hr Ceftriaxone Sodium 2 gm/ (Dextrose) 100 mls @ 100 mls/hr IVPB DAILY [facility]; Protocol Last Admin: 07/28/18 09:59 Dose: 100 mls/hr Nicotine (Nicoderm Patch -) 14 mg TD DAILY [facility] Last Admin: 07/28/18 10:01 Dose: 14 mg Patient's Own Medication (Non- Formulary) Olmesartan 20mg 2 each PO DAILY [facility] Last Admin: 07/28/18 10:00 Dose: 2 each A/P Pneumonia COPD r/o PE Smoker HTN - continue antibiotics - on empiric anticoagulation, CT findings may be related to associated hilar lymphadenopathy from RLL pneumonia - doppler studies negative, can obtain echocardiogram to evaluate RH function and consider d/c anticoagulation if RV normal - inhaled bronchodilators as needed
--- NOTE | 2018-07-28 14:15 | ECHO ---
Name: CIARA ALCOCER Exam:Adult Echocardiogram Study Date: 07/28/2018 11:49 AM Age: 78 yrs Reason For Study: Arrhythmia Height: 62 in Weight: 110 lb BSA: 1.5 m2 MMode/2D Measurements & Calculations IVSd: 0.78 cm Ao root diam: 2.5 cm LVIDd: 4.3 cm LA dimension: 3.3 cm LVIDs: 3.1 cm LVPWd: 0.78 cm EDV(Teich): 84.6 ml LVOT diam: 2.0 cm ESV(Teich): 36.5 ml Doppler Measurements & Calculations MV E max johnson: 67.5 cm/sec Ao V2 max: 154.4 cm/sec MV A max johnson: 97.2 cm/sec Ao max P.5 mmHg MV E/A: 0.69 Ao V2 mean: 109.8 cm/sec MV dec time: 0.21 sec Ao mean P.4 mmHg Ao V2 VTI: 29.4 cm JAMMIE(I,D): 1.6 cm2 AI P1/2t: 543.9 msec JAMMIE(V,D): 1.8 cm2 AI max johnson: 367.0 cm/sec LV V1 max P.1 mmHg AI max P.6 mmHg LV V1 mean P.5 mmHg AI dec slope: 197.6 cm/sec2 LV V1 max: 87.9 cm/sec LV V1 mean: 54.8 cm/sec LV V1 VTI: 15.4 cm MR max johnson: 490.8 cm/sec SV(LVOT): 47.9 ml MR max P.4 mmHg TR max johnson: 190.7 cm/sec TR max P.6 mmHg Left Ventricle The left ventricle is normal in size. Upper septal hypertrophy (sigmoid septum), normal variant. Ejec tion Fraction = 55%. The transmitral spectral Doppler flow pattern is suggestive of impaired LV relaxation . The left ventricular wall motion is normal. Right Ventricle The right ventricular systolic function is normal. Atria Normal left and right atrial size and function. Mitral Valve There is mild to moderate mitral valve thickening. There is moderate mitral regurgitation. Tricuspid Valve There is mild to moderate tricuspid regurgitation. Right ventricular systolic pressure is normal. Aortic Valve There is moderate aortic valve thickening. Moderate to severe aortic regurgitation. Pulmonic Valve Mild to moderate pulmonic valvular regurgitation. Great Vessels The aortic root is normal size. Pericardium/Pleura There is no pericardial effusion. Interpretation Summary The left ventricle is normal in size. Upper septal hypertrophy (sigmoid septum), normal variant. Ejection Fraction = 55%. The transmitral spectral Doppler flow pattern is suggestive of impaired LV relaxation. The left ventricular wall motion is normal. The right ventricular systolic function is normal. Normal left and right atrial size and function. There is mild to moderate mitral valve thickening. There is moderate mitral regurgitation. There is mild to moderate tricuspid regurgitation. Right ventricular systolic pressure is normal. There is moderate aortic valve thickening. Moderate to severe aortic regurgitation. Mild to moderate pulmonic valvular regurgitation. The aortic root is normal size. There is no pericardial effusion. Joshua Cedillo MD 07/28/2018 02:14 PM
--- NOTE | 2018-07-28 15:59 | PN ---
Progress Note (short form) - Note Progress Note: Renal follow up for hyponatremia Pt seen and examined at the bedside feels better still has cough, + sputum production no chest pain, fever, chills Vital Signs Temperature 98.5 F 07/28/18 14:04 Pulse Rate 95 H 07/28/18 14:04 Respiratory Rate 20 07/28/18 14:04 Blood Pressure 152/87 07/28/18 14:04 O2 Sat by Pulse Oximetry (%) 95 07/28/18 09:00 Intake & Output 07/25/18 07/26/18 07/27/18 07/28/18 23:59 23:59 23:59 23:59 Intake Total 570 1340 Balance 570 1340 Weight 49.895 kg 49.85 kg NAD RRR, no M/R mild rales lung base soft NT/ND no Le edema CBC, BMP 07/28/18 07:15 07/28/18 07:15 Current Medications Acetaminophen (Tylenol -) 650 mg PO Q6H PRN PRN Reason: FEVER Last Admin: 07/28/18 13:37 Dose: 650 mg Albuterol/Ipratropium (Duoneb -) 1 amp NEB Q6H PRN PRN Reason: SHORTNESS OF BREATH Last Admin: 07/27/18 15:35 Dose: 1 amp Apixaban (Eliquis -) 5 mg PO BID [facility] Aspirin (Asa -) 81 mg PO DAILY [facility] Last Admin: 07/28/18 10:01 Dose: 81 mg Benzocaine/Menthol (Cepacol Lozenge -) 1 each MM PRN PRN PRN Reason: SORE THROAT Guaifenesin (Robitussin Dm -) 10 ml PO Q4H PRN PRN Reason: COUGH Last Admin: 07/28/18 11:11 Dose: 10 ml Azithromycin (Zithromax 500mg Ivpb (Pre-Docked)) 500 mg in 250 mls @ 250 mls/ hr IVPB DAILY [facility] Last Admin: 07/28/18 10:00 Dose: 250 mls/hr Ceftriaxone Sodium 2 gm/ (Dextrose) 100 mls @ 100 mls/hr IVPB DAILY [facility]; Protocol Last Admin: 07/28/18 09:59 Dose: 100 mls/hr Nicotine (Nicoderm Patch -) 14 mg TD DAILY [facility] Last Admin: 07/28/18 10:01 Dose: 14 mg Patient's Own Medication (Non- Formulary) Olmesartan 20mg 2 each PO DAILY [facility] Last Admin: 07/28/18 10:00 Dose: 2 each 78 year old woman with hx of Hypertension, right sided heart failure who presented with cough/fever and chest pain and found to have RLL PNA and possible PE with Na of 132. 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
--- NOTE | 2018-07-28 16:35 | PN ---
Progress Note, Physician History of Present Illness: Denies shortness of breath. + productive cough. Fevers down. - Current Medication List Current Medications: Active Medications Acetaminophen (Tylenol -) 650 mg PO Q6H PRN PRN Reason: FEVER Last Admin: 07/28/18 13:37 Dose: 650 mg Albuterol/Ipratropium (Duoneb -) 1 amp NEB Q6H PRN PRN Reason: SHORTNESS OF BREATH Last Admin: 07/27/18 15:35 Dose: 1 amp Apixaban (Eliquis -) 5 mg PO BID [facility] Aspirin (Asa -) 81 mg PO DAILY [facility] Last Admin: 07/28/18 10:01 Dose: 81 mg Benzocaine/Menthol (Cepacol Lozenge -) 1 each MM PRN PRN PRN Reason: SORE THROAT Guaifenesin (Robitussin Dm -) 10 ml PO Q4H PRN PRN Reason: COUGH Last Admin: 07/28/18 11:11 Dose: 10 ml Azithromycin (Zithromax 500mg Ivpb (Pre-Docked)) 500 mg in 250 mls @ 250 mls/ hr IVPB DAILY [facility] Last Admin: 07/28/18 10:00 Dose: 250 mls/hr Ceftriaxone Sodium 2 gm/ (Dextrose) 100 mls @ 100 mls/hr IVPB DAILY [facility]; Protocol Last Admin: 07/28/18 09:59 Dose: 100 mls/hr Nicotine (Nicoderm Patch -) 14 mg TD DAILY [facility] Last Admin: 07/28/18 10:01 Dose: 14 mg Patient's Own Medication (Non- Formulary) Olmesartan 20mg 2 each PO DAILY [facility] Last Admin: 07/28/18 10:00 Dose: 2 each - Objective Vital Signs: Vital Signs Temperature 98.5 F 07/28/18 14:04 Pulse Rate 95 H 07/28/18 14:04 Respiratory Rate 20 07/28/18 14:04 Blood Pressure 152/87 07/28/18 14:04 O2 Sat by Pulse Oximetry (%) 95 07/28/18 09:00 Constitutional: Yes: No Distress, Calm Neck: Yes: Supple Cardiovascular: Yes: Regular Rate and Rhythm, Murmur (2/6 DM) Respiratory: Yes: Regular, Diminished, On Nasal O2 Gastrointestinal: Yes: Soft, Hypoactive Bowel Sounds Edema: No Labs: CBC, BMP 05/29/19 07:15 07/28/18 07:15 Problem List - Problems (1) Aortic valve regurgitation, nonrheumatic Code(s): I35.1 - NONRHEUMATIC AORTIC (VALVE) INSUFFICIENCY (2) Mitral regurgitation Code(s): I34.0 - NONRHEUMATIC MITRAL (VALVE) INSUFFICIENCY Qualifiers: Cardiac valve disease etiology: nonrheumatic Qualified Code(s): I34.0 - Nonrheumatic mitral (valve) insufficiency (3) COPD (chronic obstructive pulmonary disease) Code(s): J44.9 - CHRONIC OBSTRUCTIVE PULMONARY DISEASE, UNSPECIFIED Qualifiers: COPD type: unspecified COPD Qualified Code(s): J44.9 - Chronic obstructive pulmonary disease, unspecified (4) HTN (hypertension) Code(s): I10 - ESSENTIAL (PRIMARY) HYPERTENSION Qualifiers: Hypertension type: essential hypertension Qualified Code(s): I10 - Essential (primary) hypertension (5) Hyponatremia Code(s): E87.1 - HYPO-OSMOLALITY AND HYPONATREMIA (6) PNA (pneumonia) Code(s): J18.9 - PNEUMONIA, UNSPECIFIED ORGANISM Qualifiers: Pneumonia type: due to unspecified organism Laterality: right Lung location: lower lobe of lung Qualified Code(s): J18.1 - Lobar pneumonia, unspecified organism Assessment/Plan 07/28/2018 Echo: Normal LV size with BSH, LVEF 55%, abnl LV compliance, normal LV fxn, normal RV fxn, mod MR, mild-mod TR with normal RVSP, mod-severe AR, mild -mod AR 1. RLL Pneumonia 2. COPD 3. Unlikely PE 4. Diastolic dysfunction with mod-severe AR, mod MR 5. 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 Smoker 7. HTN P: 1. Continue antibiotics, BD, O2 as needed 2. D/c empiric anticoagulation, CT findings may be related to associated hilar lymphadenopathy from RLL pneumonia 3. Continue ASA 81 qd, resume Diovan 80 qd and uptitrate as hemodynamics tolerate 4. Continue fluid restriction of 1L daily 5. Repeat echo 6 months to assess progression of valvular cardiomyopathy
[2018-07-28] MEDS ORDERED: VALSARTAN 80 MG TABLET (UD) PO SCH (17:00)
--- NOTE | 2018-07-28 17:41 | PN ---
Progress Note, Physician History of Present Illness: AWAKE, ALERT + COUGH, WHITE SPUTUM NO C/O CHEST PAIN/ DYSPNEA TEMPS, WBC IMPROVED - Current Medication List Current Medications: Active Medications Acetaminophen (Tylenol -) 650 mg PO Q6H PRN PRN Reason: FEVER Last Admin: 07/28/18 13:37 Dose: 650 mg Albuterol/Ipratropium (Duoneb -) 1 amp NEB Q6H PRN PRN Reason: SHORTNESS OF BREATH Last Admin: 07/27/18 15:35 Dose: 1 amp Aspirin (Asa -) 81 mg PO DAILY [facility] Last Admin: 07/28/18 10:01 Dose: 81 mg Benzocaine/Menthol (Cepacol Lozenge -) 1 each MM PRN PRN PRN Reason: SORE THROAT Guaifenesin (Robitussin Dm -) 10 ml PO Q4H PRN PRN Reason: COUGH Last Admin: 07/28/18 17:01 Dose: 10 ml Azithromycin (Zithromax 500mg Ivpb (Pre-Docked)) 500 mg in 250 mls @ 250 mls/ hr IVPB DAILY [facility] Last Admin: 07/28/18 10:00 Dose: 250 mls/hr Ceftriaxone Sodium 2 gm/ (Dextrose) 100 mls @ 100 mls/hr IVPB DAILY [facility]; Protocol Last Admin: 07/28/18 09:59 Dose: 100 mls/hr Nicotine (Nicoderm Patch -) 14 mg TD DAILY [facility] Last Admin: 07/28/18 10:01 Dose: 14 mg Patient's Own Medication (Non- Formulary) Olmesartan 20mg 2 each PO DAILY [facility] Last Admin: 07/28/18 10:00 Dose: 2 each - Objective Vital Signs: Vital Signs Temperature 98.5 F 07/28/18 14:04 Pulse Rate 95 H 07/28/18 14:04 Respiratory Rate 20 07/28/18 14:04 Blood Pressure 152/87 07/28/18 14:04 O2 Sat by Pulse Oximetry (%) 95 07/28/18 09:00 Constitutional: Yes: No Distress Cardiovascular: Yes: Regular Rate and Rhythm, S1, S2 Respiratory: Yes: Diminished Gastrointestinal: Yes: Normal Bowel Sounds, Soft. No: Tenderness Edema: No Labs: CBC, BMP 07/28/18 07:15 07/28/18 07:15 Assessment/Plan RLL PNEUMONIA ? PE COPD EXACERBATION AWAIT C/S CONTINUE CEFTRIAXONE/ ZITHROMAX
[2018-07-28] MEDS ORDERED: APIXABAN 5 MG TABLET PO SCH (22:00)
[2018-07-29] MEDS: guaiFENesin/D-METHORPHAN HB 10 ML UNIT-DOSE CUPS PO PRN ×4 (02:34→22:34)
[2018-07-29 07:58] LABS: BASO % 0.4 % (0-2.0); EOS % 2.3 % (0-4.5); HEMATOCRIT 34.4 % (32.4-45.2); HEMOGLOBIN 11.9 GM/dL (10.7-15.3); LYMPH % 12.6 % (8-40); MCH 32.5 pg (25.7-33.7); MCHC 34.5 g/dl (32.0-36.0); MEAN CELL VOLUME 94.2 fl (80-96); NEUT % 73.7 % (42.8-82.8); PLATELET COUNT 428 K/MM3 (134-434); RBC 3.66 M/mm3 (3.60-5.2); RDW 13.4 % (11.6-15.6); WHITE BLOOD COUNT 11.1 K/mm3 (4.0-10.0)
[2018-07-29 08:05] LABS: ALBUMIN 2.9 g/dl (3.4-5.0); BILIRUBIN,TOTAL 0.5 mg/dL (0.2-1); CALCIUM 8.5 mg/dL (8.5-10.1); CREATININE 0.5 mg/dL (0.55-1.3); POTASSIUM 3.9 mmol/L (3.5-5.1); TOT PROT 6.4 g/dl (6.4-8.2)
[2018-07-29] MEDS: ALBUTEROL SO4 2.5/IPRATROPIUM 0.5 INH SOL 3 ML VIAL.NEB. NEB PRN (08:13)
[2018-07-29] MEDS: ACETAMINOPHEN 325 MG TABLET (FP) PO PRN ×3 (08:46→22:37)
[2018-07-29] MEDS ORDERED: DEXTROSE 5%-WATER 100 ML IVPB ONE (09:35)
[2018-07-29] MEDS: CEFTRIAXONE 2 GM in DEXTROSE 5%-WATER 100 ML IVPB SCH (09:49)
[2018-07-29] MEDS: ASPIRIN 81 MG CHEWABLE TABLETS PO SCH (09:54)
[2018-07-29] MEDS: OLMESARTAN 20 MG PO SCH (09:54)
[2018-07-29] MEDS: NICOTINE 14 MG/24 HOURS TOPICAL PATCH TD SCH (09:54)
--- NOTE | 2018-07-29 10:21 | PN ---
Progress Note, Physician History of Present Illness: Denies shortness of breath. + non-productive cough. Afebrile. - Current Medication List Current Medications: Active Medications Acetaminophen (Tylenol -) 650 mg PO Q6H PRN PRN Reason: FEVER Last Admin: 07/29/18 08:46 Dose: 650 mg Albuterol/Ipratropium (Duoneb -) 1 amp NEB Q6H PRN PRN Reason: SHORTNESS OF BREATH Last Admin: 07/29/18 08:13 Dose: 1 amp Aspirin (Asa -) 81 mg PO DAILY [facility] Last Admin: 07/29/18 09:54 Dose: 81 mg Benzocaine/Menthol (Cepacol Lozenge -) 1 each MM PRN PRN PRN Reason: SORE THROAT Guaifenesin (Robitussin Dm -) 10 ml PO Q4H PRN PRN Reason: COUGH Last Admin: 07/29/18 10:17 Dose: 10 ml Azithromycin (Zithromax 500mg Ivpb (Pre-Docked)) 500 mg in 250 mls @ 250 mls/ hr IVPB DAILY [facility] Last Admin: 07/28/18 10:00 Dose: 250 mls/hr Ceftriaxone Sodium 2 gm/ (Dextrose) 100 mls @ 100 mls/hr IVPB DAILY [facility]; Protocol Last Admin: 07/29/18 09:49 Dose: 100 mls/hr Nicotine (Nicoderm Patch -) 14 mg TD DAILY [facility] Last Admin: 07/29/18 09:54 Dose: 14 mg Patient's Own Medication (Non- Formulary) Olmesartan 20mg 2 each PO DAILY [facility] Last Admin: 07/29/18 09:54 Dose: 2 each - Objective Vital Signs: Vital Signs Temperature 99.1 F 07/29/18 06:00 Pulse Rate 109 H 07/29/18 06:00 Respiratory Rate 20 07/29/18 06:00 Blood Pressure 157/79 07/29/18 06:00 O2 Sat by Pulse Oximetry (%) 96 07/28/18 21:00 Constitutional: Yes: No Distress, Calm, Thin Neck: Yes: Supple Cardiovascular: Yes: Regular Rate and Rhythm, Murmur (2/6 DM) Respiratory: Yes: Regular, Diminished Gastrointestinal: Yes: Soft, Hypoactive Bowel Sounds Edema: No Labs: CBC, BMP 07/29/18 06:35 07/29/18 06:35 Problem List - Problems (1) Aortic valve regurgitation, nonrheumatic Code(s): I35.1 - NONRHEUMATIC AORTIC (VALVE) INSUFFICIENCY (2) Mitral regurgitation Code(s): I34.0 - NONRHEUMATIC MITRAL (VALVE) INSUFFICIENCY Qualifiers: Cardiac valve disease etiology: nonrheumatic Qualified Code(s): I34.0 - Nonrheumatic mitral (valve) insufficiency (3) COPD (chronic obstructive pulmonary disease) Code(s): J44.9 - CHRONIC OBSTRUCTIVE PULMONARY DISEASE, UNSPECIFIED Qualifiers: COPD type: unspecified COPD Qualified Code(s): J44.9 - Chronic obstructive pulmonary disease, unspecified (4) HTN (hypertension) Code(s): I10 - ESSENTIAL (PRIMARY) HYPERTENSION Qualifiers: Hypertension type: essential hypertension Qualified Code(s): I10 - Essential (primary) hypertension (5) Hyponatremia Code(s): E87.1 - HYPO-OSMOLALITY AND HYPONATREMIA (6) PNA (pneumonia) Code(s): J18.9 - PNEUMONIA, UNSPECIFIED ORGANISM Qualifiers: Pneumonia type: due to unspecified organism Laterality: right Lung location: lower lobe of lung Qualified Code(s): J18.1 - Lobar pneumonia, unspecified organism Assessment/Plan 07/28/2018 Echo: Normal LV size with BSH, LVEF 55%, abnl LV compliance, normal LV fxn, normal RV fxn, mod MR, mild-mod TR with normal RVSP, mod-severe AR, mild -mod AL 1. RLL Pneumonia 2. COPD 3. Unlikely PE 4. Diastolic dysfunction with mod-severe AR, mod MR 5. 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 Smoker 7. HTN P: 1. Continue antibiotics, BD, O2 as needed, smoking cessation 2. D/jeff empiric anticoagulation, CT findings may be related to associated hilar lymphadenopathy from RLL pneumonia 3. Resume home ECASA 325 qd and Benicar 40 qd as hemodynamics tolerate 4. Continue fluid restriction of 1L daily 5. Repeat echo 6 months to assess progression of valvular cardiomyopathy 6. Will need repeat Chest CT as an outpatient to document resolution of changes
--- NOTE | 2018-07-29 10:52 | PN ---
Progress Note (short form) - Note Progress Note: Feels overall better. Less SOB. Some non-productive cough. No CP. No hemoptysis. Intake & Output 07/26/18 07/27/18 07/28/18 07/29/18 23:59 23:59 23:59 23:59 Intake Total 570 2041 Balance 570 1960 Weight 110 lb 109 lb 14.4 oz Last Vital Signs Temp Pulse Resp BP Pulse Ox 99.1 F 109 H 20 157/79 96 07/29/18 06:00 07/29/18 06:00 07/29/18 06:00 07/29/18 06:00 07/28/18 21:00 Active Medications Acetaminophen (Tylenol -) 650 mg PO Q6H PRN PRN Reason: FEVER Last Admin: 07/29/18 08:46 Dose: 650 mg Albuterol/Ipratropium (Duoneb -) 1 amp NEB Q6H PRN PRN Reason: SHORTNESS OF BREATH Last Admin: 07/29/18 08:13 Dose: 1 amp Aspirin (Asa -) 81 mg PO DAILY [facility] Last Admin: 07/29/18 09:54 Dose: 81 mg Benzocaine/Menthol (Cepacol Lozenge -) 1 each MM PRN PRN PRN Reason: SORE THROAT Guaifenesin (Robitussin Dm -) 10 ml PO Q4H PRN PRN Reason: COUGH Last Admin: 07/29/18 10:17 Dose: 10 ml Azithromycin (Zithromax 500mg Ivpb (Pre-Docked)) 500 mg in 250 mls @ 250 mls/ hr IVPB DAILY [facility] Last Admin: 07/28/18 10:00 Dose: 250 mls/hr Ceftriaxone Sodium 2 gm/ (Dextrose) 100 mls @ 100 mls/hr IVPB DAILY [facility]; Protocol Last Admin: 07/29/18 09:49 Dose: 100 mls/hr Nicotine (Nicoderm Patch -) 14 mg TD DAILY [facility] Last Admin: 07/29/18 09:54 Dose: 14 mg Patient's Own Medication (Non- Formulary) Olmesartan 20mg 2 each PO DAILY [facility] Last Admin: 07/29/18 09:54 Dose: 2 each Gen: NAD at rest Heart: RRR Lung: decreased breath sounds at the bases Abd: soft, nontender Ext: no edema Laboratory Results - last 24 hr 07/29/18 07/29/18 06:35 06:35 WBC 11.1 H RBC 3.66 Hgb 11.9 Hct 34.4 MCV 94.2 MCH 32.5 MCHC 34.5 RDW 13.4 Plt Count 428 MPV 7.0 L Absolute Neuts (auto) 8.2 H Neutrophils % 73.7 Lymphocytes % 12.6 D Monocytes % 11.0 H Eosinophils % 2.3 D Basophils % 0.4 Nucleated RBC % 0 Sodium 133 L Potassium 3.9 Chloride 100 Carbon Dioxide 25 Anion Gap 8 BUN 5 L Creatinine 0.5 L Est GFR (CKD-EPI)AfAm 107.44 Est GFR (CKD-EPI)NonAf 92.70 Random Glucose 86 Calcium 8.5 Total Bilirubin 0.5 AST 17 ALT 22 Alkaline Phosphatase 116 Total Protein 6.4 Albumin 2.9 L A/P Pneumonia COPD Smoker HTN After further review of CT imaging, Normal ECHO for right sided pathology, and negative lower extremity venous doppler, the diagnosis of RLL PE is less likely. CT findings may be reflective of hilar adenopathy. Noted AC has been stopped which is appropriate given the paucity of objective findings of VTE burden. ABX BD TX O2 as needed No smoking Will need repeat Chest CT as an outpatient to document resolution of changes Dr Rosas Problem List - Problems (1) COPD (chronic obstructive pulmonary disease) Code(s): J44.9 - CHRONIC OBSTRUCTIVE PULMONARY DISEASE, UNSPECIFIED Qualifiers: COPD type: unspecified COPD Qualified Code(s): J44.9 - Chronic obstructive pulmonary disease, unspecified (2) Smoker Code(s): F17.200 - NICOTINE DEPENDENCE, UNSPECIFIED, UNCOMPLICATED (3) Chest pain Code(s): R07.9 - CHEST PAIN, UNSPECIFIED (4) Fall at home Code(s): W19.XXXA - UNSPECIFIED FALL, INITIAL ENCOUNTER; Y92.009 - UNSP PLACE IN UNSP NON-INSTITUT (PRIVATE) RESIDENCE PLACE (5) HTN (hypertension) Code(s): I10 - ESSENTIAL (PRIMARY) HYPERTENSION Qualifiers: Hypertension type: essential hypertension Qualified Code(s): I10 - Essential (primary) hypertension (6) Hyponatremia Code(s): E87.1 - HYPO-OSMOLALITY AND HYPONATREMIA (7) PNA (pneumonia) Code(s): J18.9 - PNEUMONIA, UNSPECIFIED ORGANISM Qualifiers: Pneumonia type: due to unspecified organism Laterality: right Lung location: lower lobe of lung Qualified Code(s): J18.1 - Lobar pneumonia, unspecified organism (8) Pulmonary embolism Code(s): I26.99 - OTHER PULMONARY EMBOLISM WITHOUT ACUTE COR PULMONALE (9) Fall Code(s): W19.XXXA - UNSPECIFIED FALL, INITIAL ENCOUNTER Qualifiers: Encounter type: initial encounter Qualified Code(s): W19.XXXA - Unspecified fall, initial encounter
[2018-07-29] MEDS: AZITHROMYCIN IVPB 500 MG/250 ML BAG IVPB SCH (11:22)
--- NOTE | 2018-07-29 13:11 | PN ---
Progress Note, Physician Chief Complaint: patient seen and examined awake alert says coughing is much better - Current Medication List Current Medications: Active Medications Acetaminophen (Tylenol -) 650 mg PO Q6H PRN PRN Reason: FEVER Last Admin: 07/29/18 08:46 Dose: 650 mg Albuterol/Ipratropium (Duoneb -) 1 amp NEB Q6H PRN PRN Reason: SHORTNESS OF BREATH Last Admin: 07/29/18 08:13 Dose: 1 amp Aspirin (Ecotrin -) 325 mg PO DAILY [facility] Benzocaine/Menthol (Cepacol Lozenge -) 1 each MM PRN PRN PRN Reason: SORE THROAT Guaifenesin (Robitussin Dm -) 10 ml PO Q4H PRN PRN Reason: COUGH Last Admin: 07/29/18 10:17 Dose: 10 ml Azithromycin (Zithromax 500mg Ivpb (Pre-Docked)) 500 mg in 250 mls @ 250 mls/ hr IVPB DAILY [facility] Last Admin: 07/29/18 11:22 Dose: 250 mls/hr Ceftriaxone Sodium 2 gm/ (Dextrose) 100 mls @ 100 mls/hr IVPB DAILY [facility]; Protocol Last Admin: 07/29/18 09:49 Dose: 100 mls/hr Nicotine (Nicoderm Patch -) 14 mg TD DAILY [facility] Last Admin: 07/29/18 09:54 Dose: 14 mg Patient's Own Medication (Non- Formulary) Olmesartan 20mg 2 each PO DAILY [facility] Last Admin: 07/29/18 09:54 Dose: 2 each - Objective Vital Signs: Vital Signs Temperature 99.1 F 07/29/18 06:00 Pulse Rate 108 H 07/29/18 10:00 Respiratory Rate 20 07/29/18 10:00 Blood Pressure 148/80 07/29/18 10:00 O2 Sat by Pulse Oximetry (%) 96 07/28/18 21:00 Constitutional: Yes: Calm Cardiovascular: Yes: S1, S2 Respiratory: Yes: Diminished Gastrointestinal: Yes: Normal Bowel Sounds, Soft Edema: No Neurological: Yes: Alert, Oriented Labs: CBC, BMP 07/29/18 06:35 07/29/18 06:35 Problem List - Problems (1) Hyponatremia Assessment/Plan: fluid restriction 1 litre na is 133 Code(s): E87.1 - HYPO-OSMOLALITY AND HYPONATREMIA (2) PNA (pneumonia) Assessment/Plan: iv abx wbc trending down cultures negative Code(s): J18.9 - PNEUMONIA, UNSPECIFIED ORGANISM Qualifiers: Pneumonia type: due to unspecified organism Laterality: right Lung location: lower lobe of lung Qualified Code(s): J18.1 - Lobar pneumonia, unspecified organism (3) Smoker Assessment/Plan: nicotine patch Code(s): F17.200 - NICOTINE DEPENDENCE, UNSPECIFIED, UNCOMPLICATED (4) HTN (hypertension) Assessment/Plan: benicar 40mg take her own medications Code(s): I10 - ESSENTIAL (PRIMARY) HYPERTENSION Qualifiers: Hypertension type: essential hypertension Qualified Code(s): I10 - Essential (primary) hypertension
--- NOTE | 2018-07-29 13:31 | PN ---
Progress Note (short form) - Note Progress Note: Renal follow up for hyponatremia Pt seen and examined at the bedside cough and sob improved had loose stools x 2 yesterday no cp, abd pain, N/V/D Vital Signs Temperature 99.1 F 07/29/18 06:00 Pulse Rate 108 H 07/29/18 10:00 Respiratory Rate 20 07/29/18 10:00 Blood Pressure 148/80 07/29/18 10:00 O2 Sat by Pulse Oximetry (%) 96 07/28/18 21:00 Intake & Output 07/26/18 07/27/18 07/28/18 07/29/18 23:59 23:59 23:59 23:59 Intake Total 570 1960 400 Balance 570 1960 400 Weight 49.895 kg 49.85 kg NAD RRR, no M/R mild rales lung base soft NT/ND no Le edema CBC, BMP 07/29/18 06:35 07/29/18 06:35 Current Medications Acetaminophen (Tylenol -) 650 mg PO Q6H PRN PRN Reason: FEVER Last Admin: 07/29/18 08:46 Dose: 650 mg Albuterol/Ipratropium (Duoneb -) 1 amp NEB Q6H PRN PRN Reason: SHORTNESS OF BREATH Last Admin: 07/29/18 08:13 Dose: 1 amp Aspirin (Ecotrin -) 325 mg PO DAILY [facility] Benzocaine/Menthol (Cepacol Lozenge -) 1 each MM PRN PRN PRN Reason: SORE THROAT Guaifenesin (Robitussin Dm -) 10 ml PO Q4H PRN PRN Reason: COUGH Last Admin: 07/29/18 10:17 Dose: 10 ml Azithromycin (Zithromax 500mg Ivpb (Pre-Docked)) 500 mg in 250 mls @ 250 mls/ hr IVPB DAILY [facility] Last Admin: 07/29/18 11:22 Dose: 250 mls/hr Ceftriaxone Sodium 2 gm/ (Dextrose) 100 mls @ 100 mls/hr IVPB DAILY [facility]; Protocol Last Admin: 07/29/18 09:49 Dose: 100 mls/hr Nicotine (Nicoderm Patch -) 14 mg TD DAILY [facility] Last Admin: 07/29/18 09:54 Dose: 14 mg Patient's Own Medication (Non- Formulary) Olmesartan 20mg 2 each PO DAILY [facility] Last Admin: 07/29/18 09:54 Dose: 2 each 78 year old woman with hx of Hypertension, right sided heart failure who presented with cough/fever and chest pain and found to have RLL PNA and possible PE with Na of 132. 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
--- NOTE | 2018-07-29 15:46 | PN ---
Progress Note, Physician History of Present Illness: FEELING BETTER AWAKE, ALERT BREATHING NON LABORED ON RA + COUGH, WHITE SPUTUM NO C/O CHEST PAIN/ DYSPNEA TEMPS, WBC IMPROVED SPUTUM C/S NORMAL NADEEN BC (-) - Current Medication List Current Medications: Active Medications Acetaminophen (Tylenol -) 650 mg PO Q6H PRN PRN Reason: FEVER Last Admin: 07/29/18 08:46 Dose: 650 mg Albuterol/Ipratropium (Duoneb -) 1 amp NEB Q6H PRN PRN Reason: SHORTNESS OF BREATH Last Admin: 07/29/18 08:13 Dose: 1 amp Aspirin (Ecotrin -) 325 mg PO DAILY [facility] Benzocaine/Menthol (Cepacol Lozenge -) 1 each MM PRN PRN PRN Reason: SORE THROAT Guaifenesin (Robitussin Dm -) 10 ml PO Q4H PRN PRN Reason: COUGH Last Admin: 07/29/18 10:17 Dose: 10 ml Azithromycin (Zithromax 500mg Ivpb (Pre-Docked)) 500 mg in 250 mls @ 250 mls/ hr IVPB DAILY [facility] Last Admin: 07/29/18 11:22 Dose: 250 mls/hr Ceftriaxone Sodium 2 gm/ (Dextrose) 100 mls @ 100 mls/hr IVPB DAILY [facility]; Protocol Last Admin: 07/29/18 09:49 Dose: 100 mls/hr Nicotine (Nicoderm Patch -) 14 mg TD DAILY [facility] Last Admin: 07/29/18 09:54 Dose: 14 mg Patient's Own Medication (Non- Formulary) Olmesartan 20mg 2 each PO DAILY [facility] Last Admin: 07/29/18 09:54 Dose: 2 each - Objective Vital Signs: Vital Signs Temperature 98.5 F 07/29/18 15:36 Pulse Rate 87 07/29/18 15:36 Respiratory Rate 20 07/29/18 15:36 Blood Pressure 128/58 L 07/29/18 15:36 O2 Sat by Pulse Oximetry (%) 96 07/28/18 21:00 Constitutional: Yes: No Distress, Thin Cardiovascular: Yes: Regular Rate and Rhythm, S1, S2 Respiratory: Yes: Diminished Gastrointestinal: Yes: Normal Bowel Sounds, Soft. No: Tenderness Edema: No Labs: CBC, BMP 07/29/18 06:35 07/29/18 06:35 Assessment/Plan RLL PNEUMONIA COPD EXACERBATION CONTINUE CEFTRIAXONE/ ZITHROMAX
[2018-07-30] MEDS: ACETAMINOPHEN 325 MG TABLET (FP) PO PRN (06:36)
[2018-07-30 07:48] LABS: BASO % 0.8 % (0-2.0); EOS % 2.7 % (0-4.5); HEMATOCRIT 34.3 % (32.4-45.2); HEMOGLOBIN 11.8 GM/dL (10.7-15.3); LYMPH % 12.2 % (8-40); MCH 32.3 pg (25.7-33.7); MCHC 34.3 g/dl (32.0-36.0); MEAN CELL VOLUME 94.2 fl (80-96); MEAN PLT VOLUME 7.3 fl (7.5-11.1); MONO % 11.4 % (3.8-10.2); NEUT % 72.9 % (42.8-82.8); PLATELET COUNT 426 K/MM3 (134-434); RBC 3.64 M/mm3 (3.60-5.2); RDW 13.2 % (11.6-15.6); WHITE BLOOD COUNT 9.9 K/mm3 (4.0-10.0)
[2018-07-30 08:10] LABS: ALBUMIN 2.8 g/dl (3.4-5.0); BILIRUBIN,TOTAL 0.4 mg/dL (0.2-1); CALCIUM 8.7 mg/dL (8.5-10.1); CREATININE 0.5 mg/dL (0.55-1.3); POTASSIUM 4.3 mmol/L (3.5-5.1); TOT PROT 6.4 g/dl (6.4-8.2)
--- NOTE | 2018-07-30 09:51 | PN ---
Progress Note, Physician History of Present Illness: Denies shortness of breath. improving now productive cough. Afebrile. - Current Medication List Current Medications: Active Medications Acetaminophen (Tylenol -) 650 mg PO Q6H PRN PRN Reason: FEVER Last Admin: 07/30/18 06:36 Dose: 650 mg Albuterol/Ipratropium (Duoneb -) 1 amp NEB Q6H PRN PRN Reason: SHORTNESS OF BREATH Last Admin: 07/29/18 08:13 Dose: 1 amp Aspirin (Ecotrin -) 325 mg PO DAILY [facility] Benzocaine/Menthol (Cepacol Lozenge -) 1 each MM PRN PRN PRN Reason: SORE THROAT Guaifenesin (Robitussin Dm -) 10 ml PO Q4H PRN PRN Reason: COUGH Last Admin: 07/29/18 22:34 Dose: 10 ml Azithromycin (Zithromax 500mg Ivpb (Pre-Docked)) 500 mg in 250 mls @ 250 mls/ hr IVPB DAILY [facility] Last Admin: 07/29/18 11:22 Dose: 250 mls/hr Ceftriaxone Sodium 2 gm/ (Dextrose) 100 mls @ 100 mls/hr IVPB DAILY [facility]; Protocol Last Admin: 07/29/18 09:49 Dose: 100 mls/hr Nicotine (Nicoderm Patch -) 14 mg TD DAILY [facility] Last Admin: 07/29/18 09:54 Dose: 14 mg Patient's Own Medication (Non- Formulary) Olmesartan 20mg 2 each PO DAILY [facility] Last Admin: 07/29/18 09:54 Dose: 2 each - Objective Vital Signs: Vital Signs Temperature 98.4 F 07/30/18 06:00 Pulse Rate 86 07/30/18 06:00 Respiratory Rate 20 07/30/18 06:00 Blood Pressure 149/92 07/30/18 06:00 O2 Sat by Pulse Oximetry (%) 95 07/29/18 21:00 Constitutional: Yes: No Distress, Calm, Thin Neck: Yes: Supple Cardiovascular: Yes: Regular Rate and Rhythm, Murmur (2/6 SM) Respiratory: Yes: Regular, Cough, Diminished Gastrointestinal: Yes: Normal Bowel Sounds, Soft Edema: No Labs: CBC, BMP 07/30/18 06:52 07/30/18 06:52 Problem List - Problems (1) Aortic valve regurgitation, nonrheumatic Code(s): I35.1 - NONRHEUMATIC AORTIC (VALVE) INSUFFICIENCY (2) Mitral regurgitation Code(s): I34.0 - NONRHEUMATIC MITRAL (VALVE) INSUFFICIENCY Qualifiers: Cardiac valve disease etiology: nonrheumatic Qualified Code(s): I34.0 - Nonrheumatic mitral (valve) insufficiency (3) COPD (chronic obstructive pulmonary disease) Code(s): J44.9 - CHRONIC OBSTRUCTIVE PULMONARY DISEASE, UNSPECIFIED Qualifiers: COPD type: unspecified COPD Qualified Code(s): J44.9 - Chronic obstructive pulmonary disease, unspecified (4) HTN (hypertension) Code(s): I10 - ESSENTIAL (PRIMARY) HYPERTENSION Qualifiers: Hypertension type: essential hypertension Qualified Code(s): I10 - Essential (primary) hypertension (5) Hyponatremia Code(s): E87.1 - HYPO-OSMOLALITY AND HYPONATREMIA (6) PNA (pneumonia) Code(s): J18.9 - PNEUMONIA, UNSPECIFIED ORGANISM Qualifiers: Pneumonia type: due to unspecified organism Laterality: right Lung location: lower lobe of lung Qualified Code(s): J18.1 - Lobar pneumonia, unspecified organism Assessment/Plan 07/28/2018 Echo: Normal LV size with BSH, LVEF 55%, abnl LV compliance, normal LV fxn, normal RV fxn, mod MR, mild-mod TR with normal RVSP, mod-severe AR, mild -mod IN 1. RLL Pneumonia 2. COPD 3. Unlikely PE 4. Diastolic dysfunction with mod-severe AR, mod MR 5. 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 Smoker 7. HTN P: 1. Complete oral antibiotic course, BD, O2 as needed, smoking cessation 2. D/jeff empiric anticoagulation, CT findings may be related to associated hilar lymphadenopathy from RLL pneumonia 3. Continue home ECASA 325 qd and Benicar 40 qd as hemodynamics tolerate 4. Continue fluid restriction of 1L daily with monitor serum Na 5. Repeat echo 6 months to assess progression of valvular cardiomyopathy 6. Will need repeat Chest CT as an outpatient to document resolution of changes
[2018-07-30] MEDS ORDERED: ASPIRIN 325 MG ENTERIC COATED TABLET (FP) PO SCH (10:00)
[2018-07-30] MEDS ORDERED: DEXTROSE 5%-WATER 100 ML IVPB ONE (10:20)
--- NOTE | 2018-07-30 10:21 | PN ---
Progress Note, Physician History of Present Illness: AWAKE, ALERT SEATED IN BED BREATHING NON LABORED ON RA + COUGH, WHITE SPUTUM NO C/O CHEST PAIN/ DYSPNEA TEMPS, WBC IMPROVED SPUTUM C/S NORMAL NADEEN BC (-) - Current Medication List Current Medications: Active Medications Acetaminophen (Tylenol -) 650 mg PO Q6H PRN PRN Reason: FEVER Last Admin: 07/30/18 06:36 Dose: 650 mg Albuterol/Ipratropium (Duoneb -) 1 amp NEB Q6H PRN PRN Reason: SHORTNESS OF BREATH Last Admin: 07/29/18 08:13 Dose: 1 amp Aspirin (Ecotrin -) 325 mg PO DAILY [facility] Benzocaine/Menthol (Cepacol Lozenge -) 1 each MM PRN PRN PRN Reason: SORE THROAT Guaifenesin (Robitussin Dm -) 10 ml PO Q4H PRN PRN Reason: COUGH Last Admin: 07/29/18 22:34 Dose: 10 ml Azithromycin (Zithromax 500mg Ivpb (Pre-Docked)) 500 mg in 250 mls @ 250 mls/ hr IVPB DAILY [facility] Last Admin: 07/29/18 11:22 Dose: 250 mls/hr Ceftriaxone Sodium 2 gm/ (Dextrose) 100 mls @ 100 mls/hr IVPB DAILY [facility]; Protocol Last Admin: 07/29/18 09:49 Dose: 100 mls/hr Nicotine (Nicoderm Patch -) 14 mg TD DAILY [facility] Last Admin: 07/29/18 09:54 Dose: 14 mg Patient's Own Medication (Non- Formulary) Olmesartan 20mg 2 each PO DAILY [facility] Last Admin: 07/29/18 09:54 Dose: 2 each - Objective Vital Signs: Vital Signs Temperature 98.4 F 07/30/18 06:00 Pulse Rate 86 07/30/18 06:00 Respiratory Rate 20 07/30/18 06:00 Blood Pressure 149/92 07/30/18 06:00 O2 Sat by Pulse Oximetry (%) 95 07/29/18 21:00 Labs: CBC, BMP 07/30/18 06:52 07/30/18 06:52
--- NOTE | 2018-07-30 10:24 | PN ---
Progress Note, Physician History of Present Illness: AWAKE, ALERT SEATED IN BED BREATHING NON LABORED ON RA NO COMPLAINTS TEMPS, WBC IMPROVED SPUTUM C/S NORMAL NADEEN BC (-) - Current Medication List Current Medications: Active Medications Acetaminophen (Tylenol -) 650 mg PO Q6H PRN PRN Reason: FEVER Last Admin: 07/30/18 06:36 Dose: 650 mg Albuterol/Ipratropium (Duoneb -) 1 amp NEB Q6H PRN PRN Reason: SHORTNESS OF BREATH Last Admin: 07/29/18 08:13 Dose: 1 amp Aspirin (Ecotrin -) 325 mg PO DAILY [facility] Benzocaine/Menthol (Cepacol Lozenge -) 1 each MM PRN PRN PRN Reason: SORE THROAT Guaifenesin (Robitussin Dm -) 10 ml PO Q4H PRN PRN Reason: COUGH Last Admin: 07/29/18 22:34 Dose: 10 ml Azithromycin (Zithromax 500mg Ivpb (Pre-Docked)) 500 mg in 250 mls @ 250 mls/ hr IVPB DAILY [facility] Last Admin: 07/29/18 11:22 Dose: 250 mls/hr Ceftriaxone Sodium 2 gm/ (Dextrose) 100 mls @ 100 mls/hr IVPB DAILY [facility]; Protocol Last Admin: 07/29/18 09:49 Dose: 100 mls/hr Nicotine (Nicoderm Patch -) 14 mg TD DAILY [facility] Last Admin: 07/29/18 09:54 Dose: 14 mg Patient's Own Medication (Non- Formulary) Olmesartan 20mg 2 each PO DAILY [facility] Last Admin: 07/29/18 09:54 Dose: 2 each - Objective Vital Signs: Vital Signs Temperature 98.4 F 07/30/18 06:00 Pulse Rate 86 07/30/18 06:00 Respiratory Rate 20 07/30/18 06:00 Blood Pressure 149/92 07/30/18 06:00 O2 Sat by Pulse Oximetry (%) 95 07/29/18 21:00 Constitutional: Yes: No Distress Eyes: Yes: Conjunctiva Clear Cardiovascular: Yes: Regular Rate and Rhythm, S1, S2 Respiratory: Yes: CTA Bilaterally Gastrointestinal: Yes: Normal Bowel Sounds, Soft. No: Tenderness Edema: No Labs: CBC, BMP 07/30/18 06:52 07/30/18 06:52 Assessment/Plan RLL PNEUMONIA COPD EXACERBATION SUBSTITUTE CEFTIN 500MG PO BID X7D OUTPATIENT FOLLOW UP
[2018-07-30] MEDS: CEFTRIAXONE 2 GM in DEXTROSE 5%-WATER 100 ML IVPB SCH (11:02)
[2018-07-30] MEDS: AZITHROMYCIN IVPB 500 MG/250 ML BAG IVPB SCH (11:04)
[2018-07-30] MEDS: NICOTINE 14 MG/24 HOURS TOPICAL PATCH TD SCH (11:05)
[2018-07-30] MEDS: OLMESARTAN 20 MG PO SCH (11:21)
--- NOTE | 2018-07-30 11:56 | DS ---
Physical Examination Vital Signs: Vital Signs Temperature 98.4 F 07/30/18 06:00 Pulse Rate 86 07/30/18 06:00 Respiratory Rate 20 07/30/18 06:00 Blood Pressure 149/92 07/30/18 06:00 O2 Sat by Pulse Oximetry (%) 95 07/29/18 21:00 Constitutional: Yes: Calm Cardiovascular: Yes: Regular Rate and Rhythm, S1, S2 Respiratory: Yes: Diminished Gastrointestinal: Yes: Normal Bowel Sounds, Soft Edema: No Neurological: Yes: Alert, Oriented Labs: CBC, BMP 07/30/18 06:52 07/30/18 06:52 Discharge Summary Reason For Visit: HYPONATREMIA/PNEUMONIA Current Active Problems Aortic valve regurgitation, nonrheumatic (Acute) COPD (chronic obstructive pulmonary disease) (Acute) Chest pain (Acute) Fall at home (Acute) HTN (hypertension) (Acute) Hyponatremia (Acute) Mitral regurgitation (Acute) PNA (pneumonia) (Acute) Pulmonary embolism (Acute) Sepsis (Acute) Smoker (Acute) Other Procedures: echo no right heart pathology. doppler of legs no dvt. CTA shows right lower lobe PNA Hospital Course: - Chief Complaint: Chest Pain, Back Pain, Cough History of Present Illness: This is a 78 y/o woman with a PMhx of HTN, Echo- EF 71%, mild R-hF, mild /AR. Who presents to the ED with chest pain, back pain, cough, fever x 1-2 days. Patient reports having a fever 102.0 at home. Patient describes the CP as "an Ache" She reports falling last Thursday out of the bathtub, hitting her head, denies LOC. Patient reports missing her step while getting out of the tub. She reports having headaches and dizziness intermittently. Patient denies SOB, palpitations, AP, N/V/D, dysuria. Patient denies recent sick contacts initially anticoagulated then stopped treated with iv abx for pna seen by pulmonary and cardiology and ID now on rocephin and zithromax to be stopped and change to po ceftin Microbiology 07/28/18 12:57 Urine - Urine Clean Catch Urine Culture - Final 07/28/18 12:40 Sputum - Expectorated Gram Stain - Final 07/28/18 12:40 Sputum - Expectorated Sputum Culture - Final NORMAL RESPIRATORY NADEEN 07/27/18 06:40 Blood - Peripheral Venous Blood Culture - Preliminary NO GROWTH OBTAINED AFTER 72 HOURS, INCUBATION TO CONTINUE FOR 2 DAYS. 07/27/18 06:40 Blood - Peripheral Venous Blood Culture - Preliminary NO GROWTH OBTAINED AFTER 72 HOURS, INCUBATION TO CONTINUE FOR 2 DAYS. Condition: Stable - Instructions Diet, Activity, Other Instructions: ceftin 500mg po bid for 7 days Referrals: Michelle Araujo MD [Primary Care Provider] - 1 Week Disposition: HOME - Home Medications Comprehensive Discharge Medication List: Ambulatory Orders Olmesartan Medoxomil [Benicar -] 40 mg PO DAILY 04/07/16 Aspirin [ASA -] 81 mg PO DAILY #30 tab.chew 04/09/16
[2018-07-30] MEDS ORDERED: AZITHROMYCIN 250 MG TABLET PO ONE (12:30)
[2018-07-30 14:15] VITALS: BP 143/80; PULSE 98; TEMP 98.8
--- NOTE | 2018-07-30 14:36 | PN ---
Progress Note (short form) - Note Progress Note: Renal follow up for hyponatremia Pt seen and examined at the bedside for discharge home today feels better no confusion, sob, cp, abd pain making urine tolerating oral diet Vital Signs Temperature 98.8 F 07/30/18 14:14 Pulse Rate 98 H 07/30/18 14:14 Respiratory Rate 20 07/30/18 14:14 Blood Pressure 143/80 07/30/18 14:14 O2 Sat by Pulse Oximetry (%) 95 07/29/18 21:00 Intake & Output 07/27/18 07/28/18 07/29/18 07/30/18 23:59 23:59 23:59 23:59 Intake Total 570 1959 1969 750 Balance 570 1959 1969 750 Weight 49.85 kg NAD RRR, no M/R mild rales lung base soft NT/ND no Le edema CBC, BMP 07/30/18 06:52 07/30/18 06:52 Current Medications Acetaminophen (Tylenol -) 650 mg PO Q6H PRN PRN Reason: FEVER Last Admin: 07/30/18 06:36 Dose: 650 mg Albuterol/Ipratropium (Duoneb -) 1 amp NEB Q6H PRN PRN Reason: SHORTNESS OF BREATH Last Admin: 07/29/18 08:13 Dose: 1 amp Aspirin (Ecotrin -) 325 mg PO DAILY AV Last Admin: 07/30/18 11:05 Dose: 325 mg Benzocaine/Menthol (Cepacol Lozenge -) 1 each MM PRN PRN PRN Reason: SORE THROAT Last Admin: 07/30/18 11:05 Dose: 1 each Guaifenesin (Robitussin Dm -) 10 ml PO Q4H PRN PRN Reason: COUGH Last Admin: 07/29/18 22:34 Dose: 10 ml Azithromycin (Zithromax 500mg Ivpb (Pre-Docked)) 500 mg in 250 mls @ 250 mls/ hr IVPB DAILY AV Last Admin: 07/30/18 11:04 Dose: 250 mls/hr Ceftriaxone Sodium 2 gm/ (Dextrose) 100 mls @ 100 mls/hr IVPB DAILY AV; Protocol Last Admin: 07/30/18 11:02 Dose: 100 mls/hr Nicotine (Nicoderm Patch -) 14 mg TD DAILY AV Last Admin: 07/30/18 11:05 Dose: 14 mg Patient's Own Medication (Non- Formulary) Olmesartan 20mg 2 each PO DAILY AV Last Admin: 07/30/18 11:21 Dose: 2 each 78 year old woman with hx of Hypertension, right sided heart failure who presented with cough/fever and chest pain and found to have RLL PNA and possible PE with Na of 132. #Chest pain #PNA #Hyponatremiea (evolemic) from [facility] from lung pathology #hypertension Serum Na now improved to within normal limits would continue moderate fluid restriction and have repeat labs next week stable for discharge from renal perspective Erick Montano DO
== END 2018-07-30 14:50 | disposition home or self-care (01) | DRG 871 ==
LOC: JER 23:15 → JERBED 07-27 05:47 → J5S 07-27 09:49 → OBSVTOIN 07-27 10:25
PROVIDERS: ADMIT Family Medicine; ATTEND Family Medicine
DX: A41.9 Sepsis, unspecified organism (principal); J18.1 Lobar pneumonia, unspecified organism; I26.99 Other pulmonary embolism without acute cor pulmonale; J44.1 Chronic obstructive pulmonary disease with (acute) exacerbation; E22.2 Syndrome of inappropriate secretion of antidiuretic hormone; J44.0 Chronic obstructive pulmonary disease with (acute) lower respiratory infection; I35.0 Nonrheumatic aortic (valve) stenosis; I10 Essential (primary) hypertension; E78.00 Pure hypercholesterolemia, unspecified; I34.0 Nonrheumatic mitral (valve) insufficiency; R07.9 Chest pain, unspecified
CPT/HCPCS: 36415; 70450-TC; 71046-TC-FY; 71275-TC; 80048; 80053; 80061; 80307; 81003; 82533; 82550; 82553; 83605; 83721; 83735; 83880; 83930; 83935; 84300; 84443; 84484; 84550; 85025; 87040; 87070; 87086; 87205; 87899; 93005; 93010; 93306-TC; 93970-TC; 94640; 97116-GP; 97161-GP; 99285-25; G0378; J0131

== ENCOUNTER 2019-02-26 14:07 | Emergency (ER) | payer OTHER, BC ==
[2019-02-26 14:31] VITALS: TEMP 99; BMI 20.2
--- NOTE | 2019-02-26 15:21 | PDOC ---
History of Present Illness - General Chief Complaint: Lightheaded Stated Complaint: SENT BY PCP // HEADACHE/ DIZINESS Time Seen by Provider: 02/26/19 15:14 History Source: Patient Exam Limitations: No Limitations - History of Present Illness Initial Comments: 02/26/19 15:14 PCP: Dr. Araujo Cards: Dr. Van HPI: 78 year old female with PMH of HTN (last echo reported 07/28/18 with EF 55% , moderate MR, mild-moderate TR, moderate to severe AR, mild-moderate MO), 40 pack year smoking history presenting from PCP office with 1 week of right arm pain, hypertension (3x 180 SBP over the week). Arm pain is intermittent, generally occurring overnight, severe, shooting up and down the lateral aspect of the right arm, starting just right of midline in cervical spine, somewhat relieved by ibuprofen 600 this AM, feels the same as patient's prior sciatica. Patient went to PCP to request naproxen and gabapentin as she feels these medications would provide her benefit. Also endorses a "mild" bilateral temporal headache, less intense than usual, that resolved with the 600 ibuprofen this AM. Endorses good medication compliance with her omasartan 40mg daily, despite this, three at home BP readings of 180 SPB over the past week. Also complains of dizziness when turning her head to the right side. Denies any fevers, chills, nausea, vomiting, chest pain or tightness, shortness of breath, cough, numbness, tingling, weakness, changes in speech, difficulty with gait, changes in her vision. Denies trauma, overlying rash, skin changes, new pillows / bed / etc. No hearing changes, tinnitus. NKDA Meds per chart PMH as above PSH per chart SHx: 40py smoker Past History - Travel Traveled outside of the country in the last 30 days: No Close contact w/someone who was outside of country & ill: No - Past Medical History Allergies/Adverse Reactions: Allergies Allergy/AdvReac Type Severity Reaction Status Date / Time No Known Allergies Allergy Verified 02/26/19 14:31 Home Medications: Ambulatory Orders Olmesartan Medoxomil [Benicar -] 40 mg PO DAILY 04/07/16 Aspirin [ASA -] 325 mg PO DAILY 02/26/19 Anemia: No Asthma: No Cancer: No Cardiac Disorders: No CVA: No COPD: No CHF: No Dementia: No Diabetes: No GI Disorders: No Disorders: No HTN: Yes Hypercholesterolemia: No Liver Disease: No Seizures: No Thyroid Disease: No - Surgical History Abdominal Surgery: No (Gall bladder removed) Appendectomy: Yes Cardiac Surgery: No Cholecystectomy: Yes Lung Surgery: No Neurologic Surgery: No Orthopedic Surgery: No - Psycho Social/Smoking Cessation Hx Smoking History: Current every day smoker Have you smoked in the past 12 months: Yes Number of Cigarettes Smoked Daily: 20 Information on smoking cessation initiated: No 'Breaking Loose' booklet given: 07/27/18 Hx Alcohol Use: Yes (socially) Drug/Substance Use Hx: No Substance Use Type: None Hx Substance Use Treatment: No Review of Systems - Review of Systems Able to Perform ROS?: Yes Is the patient limited Tajik proficient: Yes Constitutional: No: Chills, Fever, Malaise, Night Sweats, Weakness HEENTM: No: Eye Pain, Blurred Vision, Recent change in vision, Nose Congestion, Throat Pain Respiratory: No: Cough, Shortness of Breath, Wheezing Cardiac (ROS): No: Chest Pain, Edema, Irregular Heart Rate, Syncope, Chest Tightness ABD/GI: No: Constipated, Diarrhea, Nausea, Poor Appetite, Poor Fluid Intake, Vomiting : No: Burning, Dysuria, Frequency Musculoskeletal: Yes: Neck Pain. No: Back Pain, Muscle Pain, Muscle Weakness Integumentary: No: Erythema, Pruritus, Rash Neurological: Yes: See HPI, Unsteady Gait (intermittently when turning to the right), Dizziness. No: Headache, Numbness, Tingling, Weakness, Ataxia Psychiatric: No: Stressors, Emotional Problems Endocrine: No: Increased Thirst, Increased Urine, Change in Weight Hematologic/Lymphatic: No: Anemia, Blood Clots, Easy Bleeding All Other Systems: Reviewed and Negative *Physical Exam - Vital Signs Last Vital Signs Temp Pulse Resp BP Pulse Ox 99 F 86 18 172/89 H 98 02/26/19 14:27 02/26/19 14:27 02/26/19 14:27 02/26/19 14:27 02/26/19 14:27 - Physical Exam 02/26/19 15:25 Vitals reviewed, hypertensive, AF, otherwise HDS Elderly woman, no acute distress, sitting in hospital bed MMM, EOMI, NCAT, non-tender c-spine / paraspinals, normal morphologies RRR, nl s1s2, no murmurs appreciated CTABL, normal WOB, no wheezes / rales / rhonchi Soft, non-tender, non-distended WWP, no clubbing / cyanosis / edema, LLE larger than RLE - reportedly 2/2 lymphatics 2+ radial and PT/DP pulses bilaterally CN grossly intact, MAEE, normal sensation throughout RUE, 5+ strength b/l UE ED Treatment Course - LABORATORY CBC & Chemistry Diagram: 02/26/19 16:00 02/26/19 16:00 Medical Decision Making - Medical Decision Making 02/26/19 15:25 78 year old female with PMH of HTN (last echo reported 07/28/18 with EF 55%, moderate MR, mild-moderate TR, moderate to severe AR, mild-moderate MO), 40 pack year smoking history presenting from PCP office with 1 week of right arm pain, hypertension (3x 180 SBP over the week). History notable for absent chest pain, resolved headache, currently resolved cervical radicular pain at night. Exam notable for normal neuro exam, non-tender spine / paraspinals, non- reproducible dizziness with head movement, hypertension. DDX: Most likely cervical radiculopathy, vertigo unlikely given H&P, less likely CVA given normal neuro exam, unlikely ACS but will r/o given risk factors. - CBC, CMP, Mg, Cardiac Profile, PT/INR - CXR, EKG - C-Spine CT 02/26/19 18:35 - Labs unremarkable aside from mild hyponatremia - Negative troponin - EKG unchanged from prior - CT with age related changes no acute findings / compression - Patient with dinner tray - BP still elevated, reaching out to PCP to determine preferred agent 02/26/19 18:48 - 12.5 Hctz Daily, will re-check BP, order ambulatory until patient can follow up with PCP - Return precautions discussed, patient and agree with plan Dispo: Home Discharge - Discharge Information Problems reviewed: Yes Clinical Impression/Diagnosis: Cervical radicular pain HTN (hypertension) Qualifiers: Hypertension type: unspecified Qualified Code(s): I10 - Essential (primary) hypertension Condition: Good Disposition: HOME - Admission No - Follow up/Referral Referrals: Michelle Araujo MD [Primary Care Provider] - - Patient Discharge Instructions Additional Instructions: You were seen and evaluated in the ED for high blood pressure and R arm pain. Your arm pain is likely related to head position during sleep, would recommend trying different pillows / positioning during sleep. Please discuss these pains with your primary care doctor and provide a copy of your CT report. A new blood pressure medication has been sent to your pharmacy, please take this as directed until instructed otherwise by your primary care doctor. Please follow up with Dr. Van on Mar 07 as scheduled. Follow up with Dr. Araujo on Thursday for new blood pressure medication. Return to the ED for any new or concerning findings including but not limited to : chest pain, difficulty breathing, worsening headache not-responsive to pain medication, sudden changes in your vision. - Post Discharge Activity
[2019-02-26 16:21] LABS: BASO % 0.8 % (0-2.0); EOS % 2.1 % (0-4.5); HEMATOCRIT 37.7 % (32.4-45.2); HEMOGLOBIN 12.5 GM/dL (10.7-15.3); LYMPH % 19.2 % (8-40); MCH 32.9 pg (25.7-33.7); MCHC 33.3 g/dl (32.0-36.0); MEAN PLT VOLUME 6.8 fl (7.5-11.1); MONO % 8.1 % (3.8-10.2); NEUT % 69.8 % (42.8-82.8); PLATELET COUNT 319 K/MM3 (134-434); RDW 13.8 % (11.6-15.6); WHITE BLOOD COUNT 7.1 K/mm3 (4.0-10.0)
[2019-02-26 16:41] LABS: ALBUMIN 3.4 g/dl (3.4-5.0); ALK PHOS 83 U/L (45-117); ANION GAP 8 MMOL/L (8-16); BILIRUBIN,TOTAL 0.5 mg/dL (0.2-1); BLOOD UREA NITROGEN 8.8 mg/dL (7-18); CALCIUM 8.7 mg/dL (8.5-10.1); CHLORIDE 100 mmol/L (98-107); CO2 23 mmol/L (21-32); CREATININE 0.6 mg/dL (0.55-1.3); GLUCOSE,RANDOM 97 mg/dL (74-106); MAGNESIUM 2.1 mg/dL (1.8-2.4); POTASSIUM 3.9 mmol/L (3.5-5.1); SGOT/AST 21 U/L (15-37); SGPT/ALT 21 U/L (13-61); SODIUM 132 mmol/L (136-145); TOT PROT 6.7 g/dl (6.4-8.2)
[2019-02-26 17:13] LABS: INR 0.95 (0.83-1.09); PROTHROMBIN TIME (PATIENT) 11.2 SEC (9.7-13.0)
--- NOTE | 2019-02-26 18:10 | PDOC ---
Documentation entered by Karina Fish SCRIBE, acting as scribe for Kati Prince MD. Kati Prince MD: This documentation has been prepared by the Abe bermudez Nirvannie, SCRIBE, under my direction and personally reviewed by me in its entirety. I confirm that the documentation accurately reflects all work, treatment, procedures, and medical decision making performed by me. Attending Attestation - Resident Resident Name: Nando Adam - ED Attending Attestation I have performed the following: I have examined & evaluated the patient, The case was reviewed & discussed with the resident, I agree w/resident's findings & plan, Exceptions are as noted - HPI HPI: 02/26/19 18:05 The patient is a 78 year old female, with a significant past medical history of HTN, sciatica, moderate mitral regurgitation, mild-moderate tricuspid regurgitation, moderate to severe aortic regurgitation, mild-moderate pulmonary valve regurgitation, who presents to the emergency department with 1 week of elevated blood pressure and right arm pain. As per patient, her blood pressure has been elevated to the 180s systolic for approximately a week. She describes his arm pain as an intermittent, severe pain radiating upwards. He notes taking 600mg of Ibuprofen and describes his pain to be similar to prior episodes of sciatica. He endorses associated mild temporal headache and dizziness when turning his head right. Patient was being evaluated by her PCP, Dr. Araujo, at which time she was advised to report to the ED for further evaluation. She denies recent chest pain or shortness of breath. Allergies: NKDA. Social history: Smoker. Primary Care Physician: Dr. Araujo Assistant Athletic Trainer: Dr. Van ECHO: 55% on 07/28/18 - Physicial Exam PE: 02/26/19 18:07 GENERAL: The patient is in no acute distress. ENT: Ears normal, nares patent, oropharynx clear without exudates. Moist mucous membranes. NECK: Normal range of motion, supple, no nuchal rigidity (+) LAD LUNGS: Breath sounds equal, clear to auscultation bilaterally. No wheezes, and no crackles. HEART:Regular rate and rhythm, normal S1 and S2 without murmur, rub or gallop. ABDOMEN: Soft, nontender, normoactive bowel sounds. EXTREMITIES: Normal range of motion, no edema. NEUROLOGICAL: Cranial nerves II through XII grossly intact. Normal speech. No focal neurological deficits. SKIN: Warm, Dry, normal turgor, no rashes or lesions noted. - Medical Decision Making 02/26/19 18:08 EKG: Normal sinus rhythm, rate of 83 bpm, axis is normal, intervals are normal, no ST elevation or depression, T waves are upright, LVH Laboratory Tests 02/26/19 02/26/19 02/26/19 16:00 16:00 16:00 Hgb 12.5 Hct 37.7 INR 0.95 BUN 8.8 Creatinine 0.6 Creatine Kinase 79 Troponin I < 0.02 CT: FINDINGS: There are no cervical spine fractures or dislocations. There is no evidence of prevertebral soft tissue swelling. Bone mineralization appears normal. The craniocervical junction exhibits moderate osteoarthritic changes at the C1- 2 joint between the anterior arch of C1 and the odontoid process, with some erosion of the joint space and sclerosis of the articular surfaces. The vertebral body heights, alignments and normal cervical lordotic curve are well-maintained. There is multilevel apophyseal joint and facet arthropathy without clear evidence of neural foraminal stenoses. Intervertebral disk heights are preserved at all levels, without evidence of disk herniation into the spinal canal. The spinal canal and neural foramina are patent at all levels. There are no dominant masses or evidence of adenopathy in the imaged soft tissues of the neck. The thyroid glands are normal in size and contour. The thoracic inlet and lung apices are unremarkable. Vascular structures appear grossly normal. IMPRESSION: Multilevel apophyseal joint and facet arthropathy without clear evidence of neural foraminal stenoses. The study is otherwise unremarkable. No fracture. 02/26/19 18:08 02/26/19 18:08 Attempted to review this case with Dr. Graves. He is unavailable for further consultation. Patient's blood pressure remains elevated, though she shows no signs of end organ damage. We will plan to initiate treatment with hydrochlorothiazide. We will asked patient to either call Dr. Araujo or follow-up in the office in 2 days Return to the emergency department for any other concerns or complaints
[2019-02-26] MEDS ORDERED: HYDROCHLOROTHIAZIDE 12.5 MG CAPSULE (FP) PO SCH (18:45)
[2019-02-26] MEDS ORDERED: HYDROCHLOROTHIAZIDE 25 MG TABLET (FP) ONE (18:47)
[2019-02-26 19:46] VITALS: BP 181/93; PULSE 87
--- NOTE | 2019-02-27 15:28 | EKG ---
Test Reason : Blood Pressure : / mmHG Vent. Rate : 083 BPM Atrial Rate : 083 BPM P-R Int : 150 ms QRS Dur : 082 ms QT Int : 374 ms P-R-T Axes : 075 061 057 degrees QTc Int : 439 ms NORMAL SINUS RHYTHM POSSIBLE LEFT ATRIAL ENLARGEMENT LEFT VENTRICULAR HYPERTROPHY ABNORMAL ECG WHEN COMPARED WITH ECG OF 26-JUL-2018 23:12, NO SIGNIFICANT CHANGE WAS FOUND Confirmed by MD EMY, DOUG ([id number]) on 02/27/2019 3:28:04 PM Referred By: Confirmed By:DOUG QUEVEDO MD
== END 2019-02-26 19:48 | disposition home or self-care (01) ==
LOC: JER 14:07
DX: M54.12 Radiculopathy, cervical region (principal); I10 Essential (primary) hypertension; F17.210 Nicotine dependence, cigarettes, uncomplicated
CPT/HCPCS: 36415; 71045-TC-FY; 72125-TC; 80053; 82550; 83735; 84484; 85025; 85610; 93005; 93010; 99283-25

== ENCOUNTER 2019-08-23 20:02 | Emergency (ER) | payer OTHER, BC ==
[2019-08-23 20:09] VITALS: BP 134/66; PULSE 84; TEMP 98.6; BMI 20.2
== END 2019-08-23 20:43 | disposition home or self-care (01) ==
LOC: JER 20:02
DX: R09.89 Other specified symptoms and signs involving the circulatory and respiratory systems (principal)
CPT/HCPCS: 71046-TC-FY; 99283-25

== ENCOUNTER 2024-06-23 10:17 | Inpatient (IN) | payer OTHER, BC ==
[2024-06-23] MEDS ORDERED: FAMOTIDINE 20 MG/50 ML IVPB 20 MG/50 ML MG IVPB ONE (11:46)
[2024-06-23] MEDS ORDERED: MAG HYDROX/AL HYDROX/SIMETH 30 ML UNIT-DOSE CUP ONE (11:46)
[2024-06-23] MEDS ORDERED: ACETAMINOPHEN INJECTION 100 ML ONE (11:46)
[2024-06-23 11:51] LABS: ABSOLUTE IMMATURE GRANULOCYTES 0.03 x10^3/uL (0.0-0.031); BASOPHILS # 0.04 x10^3/uL (0.01-0.08); EOSINOPHIL % 1.2 % (0.7-5.8); HEMATOCRIT 37.8 % (34.1-44.9); HEMOGLOBIN 12.9 g/dL (11.2-15.7); MCHC 34.1 g/dl (32.2-35.5); MEAN CELL VOLUME 90.9 fl (79.4-94.8); MEAN PLT VOLUME 8.9 fl (9.4-12.3); MONOCYTE # 0.64 x10^3/uL (0.24-0.86); MONOCYTE % 7.5 % (4.7-12.5); PLATELET COUNT 352 x10^3/uL (182-369); RDW 13.9 % (12.5-17.0)
[2024-06-23 11:59] LABS: INR 1.02 (0.83-1.09); PROTHROMBIN TIME (PATIENT) 11.2 SEC (9.7-13.0)
[2024-06-23 12:01] LABS: ACTIVATED PTT 32.3 SECONDS (25.2-36.5)
[2024-06-23] MEDS: ACETAMINOPHEN 1000 MG/100 ML BAG IVPB ONE (12:01)
[2024-06-23] MEDS: FAMOTIDINE 20 MG/50 ML IVPB 20 MG/50 ML MG IVPB ONE (12:01)
[2024-06-23] MEDS: MAG HYDROX/AL HYDROX/SIMETH 30 ML UNIT-DOSE CUP PO ONE (12:01)
[2024-06-23 12:09] LABS: POTASSIUM 4.9 mmol/L (3.5-5.1)
[2024-06-23 12:11] LABS: CALCIUM 10.2 mg/dL (8.5-10.1)
[2024-06-23 12:12] LABS: ALBUMIN 3.6 g/dl (3.4-5.0); MAGNESIUM 1.9 mg/dL (1.8-2.4)
[2024-06-23 12:15] LABS: CREATININE 0.8 mg/dL (0.55-1.3)
[2024-06-23 12:16] LABS: BILIRUBIN,TOTAL 0.6 mg/dL (0.2-1); TOT PROT 7.3 g/dl (6.4-8.2)
[2024-06-23 12:29] LABS: PH,URINE 7.5 (5.0-8.0); URINE APPEARANCE CLEAR; URINE BILIRUBIN NEGATIVE (NEGATIVE); URINE COLOR YELLOW; URINE GLUCOSE (UA) NEGATIVE (NEGATIVE); URINE KETONE NEGATIVE (NEGATIVE); URINE LEUK ESTERASE NEGATIVE (NEGATIVE); URINE NITRITE NEGATIVE (NEGATIVE); URINE PROTEIN NEGATIVE (NEGATIVE); URINE UROBILINOGEN 0.2 mg/dL (0.2-1.0)
[2024-06-23] MEDS: DEXTROSE 5%-0.45% SALINE 1,000 ML IV SCH (22:37)
[2024-06-24] MEDS: ACETAMINOPHEN 1000 MG/100 ML BAG IVPB ONE (00:33)
[2024-06-24] MEDS: LORazepam 2 MG/ML SDV VIAL IVPUSH ONE (03:14)
[2024-06-24 08:10] LABS: ABSOLUTE IMMATURE GRANULOCYTES 0.02 x10^3/uL (0.0-0.031); BASOPHILS # 0.03 x10^3/uL (0.01-0.08); EOSINOPHIL % 2.3 % (0.7-5.8); HEMATOCRIT 34.7 % (34.1-44.9); HEMOGLOBIN 11.5 g/dL (11.2-15.7); MCHC 33.1 g/dl (32.2-35.5); MEAN CELL VOLUME 91.1 fl (79.4-94.8); MEAN PLT VOLUME 9.5 fl (9.4-12.3); MONOCYTE # 0.74 x10^3/uL (0.24-0.86); MONOCYTE % 8.4 % (4.7-12.5); PLATELET COUNT 298 x10^3/uL (182-369); RDW 13.7 % (12.5-17.0)
[2024-06-24 08:26] LABS: POTASSIUM 3.7 mmol/L (3.5-5.1)
[2024-06-24 08:27] LABS: BLOOD UREA NITROGEN 12.7 mg/dL (7-18)
[2024-06-24 08:30] LABS: CREATININE 0.7 mg/dL (0.55-1.3)
[2024-06-24] MEDS: LORazepam 2 MG/ML SDV VIAL IVPUSH PRN (10:26)
[2024-06-24 11:57] LABS: ALBUMIN 3.3 g/dl (3.4-5.0)
[2024-06-24 11:59] LABS: BILIRUBIN,DIRECT 0.2 mg/dL (0.0-0.2)
[2024-06-24 12:02] LABS: BILIRUBIN,TOTAL 0.5 mg/dL (0.2-1); TOT PROT 6.5 g/dl (6.4-8.2)
[2024-06-24 15:10] VITALS: BMI 16.5
[2024-06-24] MEDS: LOSARTAN POTASSIUM 50 MG TABLET PO SCH (16:35)
[2024-06-24] MEDS: HYDROCHLOROTHIAZIDE 12.5 MG CAPSULE (FP) PO SCH (16:35)
[2024-06-25 09:28] VITALS: BP 163/97; PULSE 91; RESP 16; TEMP 97.7
[2024-06-25] MEDS ORDERED: busPIRone HCL 5 MG TABLET PO SCH (10:15)
== END 2024-06-25 11:19 | disposition left against medical advice (07) | DRG 444 ==
LOC: JER 10:17 → JERBED 20:20 → J7W 22:49
PROVIDERS: ADMIT Family Medicine; ATTEND Family Medicine
DX: K83.8 Other specified diseases of biliary tract (principal); E43 Unspecified severe protein-calorie malnutrition; Z68.1 Body mass index [BMI] 19.9 or less, adult; R64 Cachexia; K57.90 Diverticulosis of intestine, part unspecified, without perforation or abscess without bleeding; J44.9 Chronic obstructive pulmonary disease, unspecified; I10 Essential (primary) hypertension; R10.9 Unspecified abdominal pain
CPT/HCPCS: 0241U-QW; 36415; 71045-TC-FY; 74176-TC; 74181-TC; 80048; 80053; 80076; 81003; 83605; 83690; 83735; 84484; 85025; 85610; 85730; 87086; 87186; 93005; 93010; 99285-25; J0131